=== PATIENT | male | born 1965 | race Caucasian/White ===

== ENCOUNTER 2020-03-18 13:26 | Outpatient (REF) | payer OTHER, SELFPAY | END 2020-03-18 13:27 | disposition home or self-care (01) | LOC: HO.LAB 13:26 | PROVIDERS: Visit Provider Nurse Practitioner Family | DX: Z20.828 Contact with and (suspected) exposure to other viral communicable diseases (principal) | CPT/HCPCS: C9803; U0003 ==

== ENCOUNTER 2020-06-19 07:35 | Outpatient (REF) | payer OTHER, SELFPAY ==
[2020-06-19 09:05] LABS: Alanine Aminotransferase 23 U/L (0-40); Albumin Level 4.3 g/dL (3.5-5.0); Alkaline Phosphatase 66 U/L (39-117); Anion Gap 11 (12-20); Aspartate Amino Transferase 18 U/L (5-37); Bilirubin Total 0.9 mg/dL (0.0-1.0); Blood Urea Nitrogen 22 mg/dL (9-16); Calcium 9.3 mg/dL (8.4-10.2); Carbon Dioxide 31 mmol/L (22-29); Chloride 102 mmol/L (96-108); Cholesterol 217 mg/dL; Estimated Glomerular Filt Rate > 60; Glucose Fasting 98 mg/dL (60-99); HDL Cholesterol 47 mg/dL; LDL Cholesterol Calculated 150 mg/dl; Sodium 140 mmol/L (135-145); Total Protein 7.1 g/dL (6.5-8.0); Triglycerides 100 mg/dL
[2020-06-19 09:28] LABS: Prostate Specific Antigen Scr 1.76 ng/mL (<0.05-4.0); TSH reflex Free T4 1.52 uIU/mL (0.32-4.0)
== END 2020-06-19 07:36 | disposition home or self-care (01) ==
LOC: HO.LAB 07:35
PROVIDERS: PCP Nurse Practitioner Family; Visit Provider Nurse Practitioner Family
DX: Z00.00 Encounter for general adult medical examination without abnormal findings (principal); Z12.5 Encounter for screening for malignant neoplasm of prostate
CPT/HCPCS: 36415; 80053; 80061; 84153; 84443

== ENCOUNTER 2020-06-19 08:14 | Outpatient (REF) | payer OTHER, SELFPAY | END 2020-06-19 08:15 | disposition home or self-care (01) | LOC: HO.LAB 08:14 | PROVIDERS: Visit Provider Internal Medicine | DX: Z20.822 Contact with and (suspected) exposure to COVID-19 (principal) | CPT/HCPCS: 36415; C9803; U0003; U0005 ==

== ENCOUNTER 2021-05-23 10:09 | Outpatient (REF) | payer OTHER, SELFPAY ==
--- NOTE | ~2021-05-23 | US_ITS ---
EXAMINATION: US VENOUS ULTRASOUND WITH DOPPLER LOWER EXTREMITY, RIGHT CLINICAL INFORMATION: Pain COMPARISON: None TECHNIQUE: Ultrasound of the deep veins is performed from the hip to the calf with compression sonography and color and pulse Doppler assessment. Spectral analysis with color-flow imaging is performed. FINDINGS: Acute thrombosis of the right lower extremity deep venous system extending from the calf to the groin. Clot appears acute with distention and appears occlusive. US/US venous duplex LE RT IMPRESSION: Acute right lower extremity extensive DVT as above. Dr. Angeles notified by technologist immediately following exam.
[2021-05-23 11:17] LABS: MANUAL DIFF FLAG NO
[2021-05-23 11:21] LABS: Basophils Percent Auto 0.2 % (0-2); Eosinophils Percent Auto 0.1 % (0-4); Hematocrit 42.7 % (42.0-52.0); Hemoglobin 13.8 g/dl (14.0-18.0); Imm Gran Abs Auto 0.17 X10*3/uL (0.00-0.03); Lymphocytes Absolute Auto 1.3 X10*3/uL (1.2-4.9); Lymphocytes Percent Auto 7.6 % (20-40); Mean Corpuscular HGB Conc 32.3 g/dl (31.0-36.0); Mean Corpuscular Hemoglobin 29.2 pg (27.0-33.0); Mean Corpuscular Volume 90.5 fL (80.0-98.0); Mean Platelet Volume 9.2 fL (9.4-12.4); Monocytes Absolute Auto 1.2 X10*3/uL (0.1-1.2); Monocytes Percent Auto 7.1 % (2-11); Neutrophils Absolute Auto 14.7 x10*3/uL (2.0-8.3); Platelet Count 611 X10*3/uL (160-400); Red Blood Count 4.72 X10*6/uL (4.60-5.80); Red Cell Distribution Width 13.3 % (11.0-16.0); White Blood Count 17.5 X10*3/uL (4.8-10.8)
[2021-05-23 11:28] LABS: D Dimer High Sensitivity 2487 NG/ML
[2021-05-23 12:00] LABS: Alanine Aminotransferase 115 U/L (0-40); Albumin Level 3.3 g/dL (3.5-5.0); Alkaline Phosphatase 259 U/L (39-117); Anion Gap 18 (12-20); Aspartate Amino Transferase 61 U/L (5-37); Bilirubin Total 1.2 mg/dL (0.0-1.0); Blood Urea Nitrogen 16 mg/dL (9-16); Calcium 9.1 mg/dL (8.4-10.2); Carbon Dioxide 23 mmol/L (22-29); Chloride 102 mmol/L (96-108); Estimated Glomerular Filt Rate > 60; Glucose Random 146 mg/dL (60-115); Sodium 138 mmol/L (135-145); Total Protein 7.9 g/dL (6.5-8.0)
== END 2021-05-23 10:10 | disposition home or self-care (01) ==
LOC: HO.HMGCX 10:09
PROVIDERS: PCP Nurse Practitioner Family; Visit Provider Nurse Practitioner Family
DX: M79.661 Pain in right lower leg (principal); R07.89 Other chest pain
CPT/HCPCS: 36415; 80053; 85025; 85379; 93971

== ENCOUNTER 2021-05-23 10:58 | Inpatient (IN) | payer OTHER, SELFPAY ==
--- NOTE | ~2021-05-23 | XR_ITS ---
EXAMINATION: XR CHEST CLINICAL INFORMATION: Dyspnea COMPARISON: None TECHNIQUE: Frontal view of the chest was obtained. FINDINGS: The cardiac and mediastinal contours are normal. There are bilateral peripheral infiltrates, greatest in the left upper lung. Covid infection should be excluded. There is no pleural effusion or pneumothorax. There are mild degenerative changes of the spine. XR/XR chest 1V IMPRESSION: Bilateral peripheral infiltrates. Covid infection should be excluded.
--- NOTE | ~2021-05-23 | CT_ITS ---
EXAMINATION: CT ANGIOGRAM OF THE CHEST WITH AND WITHOUT CONTRAST (CT PULMONARY ANGIOGRAM FOR PE) CLINICAL INFORMATION: Reason for Exam dvt and sob rule out pe COMPARISON: None TECHNIQUE: Prior to contrast administration, noncontrast localization images were obtained. Subsequently, multidetector volumetric imaging was performed from the thoracic inlet to below the diaphragms following the administration of 80 mL Omnipaque 350 intravenous contrast. No contrast reaction reported Sagittal, coronal, and MIP oblique sagittal reformatted images were obtained on the CT workstation, uploaded to PACS, and reviewed. This CT examination was performed using dose optimization techniques as appropriate, variously including the following: *Automated exposure control *Adjustment of mA and/or kV according to patient size (this includes techniques or standardized protocols for targeted exams where dose is matched to indication/reason for exam; i.e. extremities or head) *Use of iterative reconstruction technique Total exam dose-length product 404 mGy-cm FINDINGS: QUALITY OF STUDY/CONTRAST BOLUS: Satisfactory. PULMONARY ARTERIES: There are large obstructive emboli in the right and left pulmonary artery bifurcations and moderate sized emboli in the right and left pulmonary arteries. The emboli extend into left and right inferior pulmonary artery branches and left upper pulmonary artery branch. THORACIC AORTA: No aneurysm or dissection. LUNG: There are multiple bilateral patchy opacities consistent with infiltrates involving both upper lobes, lower and mid lungs. PLEURA: No pleural effusion or pneumothorax. MEDIASTINUM: Heart size and the great vessels are normal caliber. No pericardial effusion seen. There are small reactive lymph nodes. Bilateral thyroid lobes are symmetrical and normal. No evidence of septal bowing or right heart strain. CHEST WALL/AXILLA: No axillary or internal mammary lymphadenopathy. OSSEOUS STRUCTURES: Moderate ventral spondylosis dorsal spine. No lytic or sclerotic process seen. UPPER ABDOMEN: There is a moderate size right hepatic cyst measuring 2.9 cm. Otherwise rest of liver, gallbladder, pancreas, spleen and adrenal glands are unremarkable. No reflux of contrast into the hepatic veins to suggest elevated right heart pressures. CT/CT angio chest PE protocol IMPRESSION: Large bilateral obstructive right and left pulmonary artery emboli. Bilateral patchy airspace disease consistent with infiltrate likely from Covid disease. Results were immediately called to referring physician Dr. Chang at 3:10 PM in ED. VTE: negative
[2021-05-23 11:56] VITALS: BP 138/88; PULSE 145; RESP 24; TEMP 37.1; O2SAT 93; BMI 33.9
--- NOTE | 2021-05-23 12:20 | ECG_ITS ---
Test Reason : seizure Blood Pressure : / mmHG Vent. Rate : 130 BPM Atrial Rate : 130 BPM P-R Int : 144 ms QRS Dur : 110 ms QT Int : 302 ms P-R-T Axes : 049 -60 018 degrees QTc Int : 444 ms Sinus tachycardia Incomplete right bundle branch block Left anterior fascicular block Nonspecific ST and T wave abnormality Abnormal ECG When compared with ECG of 28-JUN-2016 13:46, Vent. rate has increased BY 57 BPM Left anterior fascicular block is now Present ST no longer depressed in Inferior leads T wave inversion now evident in Inferior leads Referred By: [place] Electronically Signed By:Grant Jimenez
--- NOTE | 2021-05-23 12:47 | ED.EXTPRO ---
HPI - Extremity Problem General Chief complaint: Extremity Problem Stated complaint: DVT Time Seen by Provider: 05/23/21 12:17 Source: patient Mode of arrival: ambulatory Limitations: no limitations History of Present Illness HPI Narrative: 55-year-old male was evaluated by his PCP for right lower extremity pain, patient had an ultrasound done by his PCP showed extensive and occlusive DVT in the right lower extremity, patient declined any recent travel, no prolonged immobilization, never had blood clots in the past. Patient also found to be tachycardic and tachypneic and his O2 sat in the low side But declined chest pain. Patient also is known to be positive COVID on 05/03 Saddle PE need to be ruled out, patient is known to have mild allergy to IV contrast (rash), patient will be receiving 125 of Solu-Medrol and 50 of Benadryl IV before we get the CT angio of the chest. As per history patient had ruptured cerebral aneurysm many years ago. Will cautiously anticoagulated the patient with heparin. Related Data Home Medications Medication Instructions Recorded Confirmed thiamine mononitrate (vit B1) 100 100 mg PO DAILY 06/15/20 05/23/21 mg tablet Previous Rx's Medication Instructions Recorded atenolol 25 mg tablet 25 mg PO DAILY #30 tab 09/17/20 amlodipine 5 mg tablet 5 mg PO DAILY #90 tab 04/15/21 hydrochlorothiazide 25 mg tablet 25 mg PO DAILY #90 tab 04/15/21 Allergies Allergy/AdvReac Type Severity Reaction Status Date / Time Iodinated Contrast Media Allergy Unknown HIVES Verified 05/23/21 10:48 [IV CONTRAST] IVP dye Allergy Unknown hives Uncoded 05/23/21 10:48 Review of Systems Review of Systems: all other systems are reviewed and are negative Constitutional: Reports as per HPI and Reports no additional constitutional complaints Eyes: Reports as per HPI and Reports no additional eye complaints Reports system reviewed and no additional complaints, except as documented Cardiovascular: Reports as per HPI and Reports no additional cardiovascular complaints Respiratory: Reports as per HPI and Reports no additional respiratory complaints Gastrointestinal: Reports as per HPI and Reports no additional gastrointestinal complaints Genitourinary: Reports no additional female genitourinary complaints Musculoskeletal: Reports no additional musculoskeletal complaints Skin/Breast: Reports system reviewed and no additional complaints, except as docu Psychiatric: Reports no additional psychiatric complaints Endocrine: Reports no additional endocrine complaints Hematologic/Lymphatic: Reports no additional hematologic/lymphatic complaints Allergic/Immunologic: Reports no additional allergic/immunologic complaints Reports system reviewed and no additional complaints, except as documented and Reports Abnormal speech present [facility] Past Medical History Medical History Anemia Aortic root dilatation BPH (benign prostatic hyperplasia) Cerebral aneurysm Cogwheel rigidity CVA (cerebral vascular accident) HTN (hypertension) Tremor Surgical History History of brain surgery Family History Family History Father Cancer of prostate Mother No problems noted. Daughter No problems noted. 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 Blood pressure normal. Heart rate elevated. Respiration rate elevated. Temperature normal. Oxygen saturation normal. Appearance: Alert. Oriented X3, mild respiratory acute distress. Head: Normal external exam. Normocephalic. Atraumatic. No Strickland signs noted. No raccoon eyes noted Eyes: PERRLA. EOMI. Conjunctiva and sclera normal. Eyelids normal. ENT: TM's Normal. Pharynx normal. Uvula midline. Moist mucous membranes. No trismus noted. No drooling noted. No muffled voice noted. Neck: Normal inspection. Neck supple. FROM. No adenopathy. Thyroid Normal. No meningeal signs. No neck mass noted. CVS: Normal heart rate and rhythm. Heart sound normal. No murmurs noted. Pulses normal throughout. Respiratory: No respiratory distress. Painless inspiration. Breath sounds normal. No wheezes/rales/rhonchi noted. Chest nontender. No accessory muscle usage noted or decreased air movement noted. Abdomen: Soft and nontender. Bowel sounds normal in all 4 quadrants. No distention noted. No organomegaly noted. No visible injury noted. Back: No CVA tenderness. Full range of motion noted. Skin: Skin warm and dry. Normal skin color. Normal skin turgor. No rashes/lesions/lacerations noted. Extremities: No lower extremity edema. Extremities exhibit normal range of motion. Extremities nontender. Neuro: Oriented X 3. Cranial nerve exam: II-XII are grossly intact No motor deficit. No sensory deficit. Reflexes normal. Course Course Course Narrative: Assessment and plan. 55-year-old male came in with diagnosis of right lower extremities DVT, because patient noted to be tachycardic and tachypneic had a CT which showed to massive occlusive pulmonary artery embolism, start the patient on heparin, patient had a history of remote cerebral aneurysm cautiously will start the patient on heparin. I discussed with Dr. Hernandez (neurologist ) who confirmed safety of using heparin in this condition. Patient may require been [place] filter placed an IVC to be discussed with IR. MDM - Extremity (Nontraumatic) Lab Data Result diagrams: 05/24/21 03:40 05/24/21 03:41 Labs: Lab Results 05/23/21 05/23/21 05/23/21 Range/Units 15:37 15:37 15:37 WBC Cancelled RBC Cancelled Hgb Cancelled Hct Cancelled MCV Cancelled MCH Cancelled MCHC Cancelled RDW Cancelled Plt Count Cancelled MPV Cancelled Immature Gran % (Auto) Cancelled Neut % (Auto) Cancelled Lymph % (Auto) Cancelled [place] % (Auto) Cancelled Eos % (Auto) Cancelled Baso % (Auto) Cancelled Lymph # (Auto) Cancelled [place] # (Auto) Cancelled Eos # (Auto) Cancelled Baso # (Auto) Cancelled Abs Immat Gran (auto) Cancelled Absolute Neuts (auto) Cancelled Absolute Nucleated RBC Cancelled Nucleated RBC % (auto) Cancelled PT (9.9-13.0) SEC INR (0.9-1.1) APTT (24.1-38.0) SEC PTT (Heparin Protocol) Sodium 136 (135-145) mmol/L Potassium 4.9 (3.3-5.1) mmol/L Chloride 101 (96-108) mmol/L Carbon Dioxide 24 (22-29) mmol/L Anion Gap 16 (12-20) BUN 16 (9-16) mg/dL Creatinine 0.88 (0.5-1.4) mg/dL Estim Creat Clear Calc 123.3 Estimated GFR > 60 Random Glucose 134 H (60-115) mg/dL Calcium 9.1 (8.4-10.2) mg/dL Magnesium 2.2 (1.6-2.6) mg/dL Total Bilirubin 1.4 H (0.0-1.0) mg/dL Direct Bilirubin 0.8 H (0.0-0.5) mg/dL AST 50 H (5-37) U/L ALT 110 H (0-40) U/L Alkaline Phosphatase 251 H (39-117) U/L Troponin I High Sens (<3.5-35.0) ng/L B-Natriuretic Peptide (<100) pg/mL Total Protein 8.0 (6.5-8.0) g/dL Albumin 3.4 L (3.5-5.0) g/dL COVID-19 (KELLY) Negative (Negative) COVID-19 Clin Com See Note 05/23/21 05/23/21 05/23/21 Range/Units 15:37 15:37 15:38 WBC 17.1 H RBC 4.59 L Hgb 13.4 L Hct 41.2 L MCV 89.8 MCH 29.2 MCHC 32.5 RDW 13.4 Plt Count 497 H MPV 8.9 L Immature Gran % (Auto) Neut % (Auto) Lymph % (Auto) [place] % (Auto) Eos % (Auto) Baso % (Auto) Lymph # (Auto) [place] # (Auto) Eos # (Auto) Baso # (Auto) Abs Immat Gran (auto) Absolute Neuts (auto) Absolute Nucleated RBC 0.000 Nucleated RBC % (auto) 0.0 PT 16.1 H (9.9-13.0) SEC INR 1.4 H (0.9-1.1) APTT 38.5 H (24.1-38.0) SEC PTT (Heparin Protocol) Sodium (135-145) mmol/L Potassium (3.3-5.1) mmol/L Chloride (96-108) mmol/L Carbon Dioxide (22-29) mmol/L Anion Gap (12-20) BUN (9-16) mg/dL Creatinine (0.5-1.4) mg/dL Estim Creat Clear Calc Estimated GFR Random Glucose (60-115) mg/dL Calcium (8.4-10.2) mg/dL Magnesium (1.6-2.6) mg/dL Total Bilirubin (0.0-1.0) mg/dL Direct Bilirubin (0.0-0.5) mg/dL AST (5-37) U/L ALT (0-40) U/L Alkaline Phosphatase (39-117) U/L Troponin I High Sens 32.8 (<3.5-35.0) ng/L B-Natriuretic Peptide 78 (<100) pg/mL Total Protein (6.5-8.0) g/dL Albumin (3.5-5.0) g/dL COVID-19 (KELLY) (Negative) COVID-19 Clin Com 05/23/21 Range/Units 15:38 WBC RBC Hgb Hct MCV MCH MCHC RDW Plt Count MPV Immature Gran % (Auto) Neut % (Auto) Lymph % (Auto) [place] % (Auto) Eos % (Auto) Baso % (Auto) Lymph # (Auto) [place] # (Auto) Eos # (Auto) Baso # (Auto) Abs Immat Gran (auto) Absolute Neuts (auto) Absolute Nucleated RBC Nucleated RBC % (auto) PT Cancelled (9.9-13.0) SEC INR Cancelled (0.9-1.1) APTT (24.1-38.0) SEC PTT (Heparin Protocol) Cancelled Sodium (135-145) mmol/L Potassium (3.3-5.1) mmol/L Chloride (96-108) mmol/L Carbon Dioxide (22-29) mmol/L Anion Gap (12-20) BUN (9-16) mg/dL Creatinine (0.5-1.4) mg/dL Estim Creat Clear Calc Estimated GFR Random Glucose (60-115) mg/dL Calcium (8.4-10.2) mg/dL Magnesium (1.6-2.6) mg/dL Total Bilirubin (0.0-1.0) mg/dL Direct Bilirubin (0.0-0.5) mg/dL AST (5-37) U/L ALT (0-40) U/L Alkaline Phosphatase (39-117) U/L Troponin I High Sens (<3.5-35.0) ng/L B-Natriuretic Peptide (<100) pg/mL Total Protein (6.5-8.0) g/dL Albumin (3.5-5.0) g/dL COVID-19 (KELLY) (Negative) COVID-19 Clin Com Imaging Data Chest x-ray: Attestation: I personally reviewed and interpreted this imaging study as follows: Radiologist's impression: Bilateral peripheral infiltrates. Covid infection should be excluded. ? Right lower extremities venous Doppler: Attestation: I personally reviewed and interpreted this imaging study as follows: Radiologist's impression: Acute right lower extremity extensive DVT as above. Dr. Angeles notified by technologist immediately following exam. CT angiogram of the chest: Attestation: I personally reviewed and interpreted this imaging study as follows: Radiologist's impression: Large bilateral obstructive right and left pulmonary artery emboli. ? Bilateral patchy airspace disease consistent with infiltrate likely from Covid disease. ? ECG Data Attestation EKG: I personally reviewed and interpreted this ECG as follows: Interpretation: sinus tachycardia 130 beats per minutes, incompletely bundle branch block, nonspecific ST-T changes. Discharge Plan Discharge Clinical Impression: Acute deep vein thrombosis (DVT) of right lower extremity Pulmonary embolism Qualifiers: Chronicity: acute Acute cor pulmonale presence: without acute cor pulmonale Patient Disposition: Admitted As Inpatient
[2021-05-23] MEDS: diphenhydrAMINE HCL 50 MG/ML VIAL IVPUSH (13:32)
[2021-05-23] MEDS: methylPREDNISolone Sod Succ 125 MG/2 ML VIAL IVPUSH (13:32)
[2021-05-23] MEDS: Morphine Sulfate 2 MG/ML CARTRIDGE IVPUSH (13:32)
[2021-05-23 13:33] VITALS: BP 116/72; PULSE 137; RESP 23; O2SAT 90
--- NOTE | 2021-05-23 14:28 | PHA.MEDREC ---
Pharmacy Consult ? Medication Reconciliation Pharmacy has completed the medication reconciliation. There are no remarkable issues for provider's attention. Alexandria Kumar, AlphonseD
[2021-05-23] MEDS: iohexoL 350 MG/ML 100 ML INFUS..BTL IV (15:02)
[2021-05-23] MEDS: Heparin Sodium,Porcine 5,000 UNIT/ML VIAL 9100 UNIT IVPUSH (15:30)
[2021-05-23] MEDS: Heparin Sodium,Porcine/1/2NS 25,000 UNIT/250 ML IV.SOLN 15.88 UNIT IVCONT (15:41)
[2021-05-23 15:46] VITALS: BP 131/87; PULSE 133; RESP 32; TEMP 36.6; O2SAT 91
[2021-05-23 15:46] LABS: Hematocrit 41.2 % (42.0-52.0); Hemoglobin 13.4 g/dl (14.0-18.0); Mean Corpuscular HGB Conc 32.5 g/dl (31.0-36.0); Mean Corpuscular Hemoglobin 29.2 pg (27.0-33.0); Mean Corpuscular Volume 89.8 fL (80.0-98.0); Mean Platelet Volume 8.9 fL (9.4-12.4); Platelet Count 497 X10*3/uL (160-400); Red Blood Count 4.59 X10*6/uL (4.60-5.80); Red Cell Distribution Width 13.4 % (11.0-16.0); White Blood Count 17.1 X10*3/uL (4.8-10.8)
[2021-05-23 15:53] LABS: INTERNATIONAL NORM RATIO 1.4 (0.9-1.1); Prothrombin Time 16.1 SEC (9.9-13.0)
[2021-05-23 15:55] LABS: Partial Thromboplastin Time 38.5 SEC (24.1-38.0)
[2021-05-23 15:59] LABS: Alanine Aminotransferase 110 U/L (0-40); Albumin Level 3.4 g/dL (3.5-5.0); Alkaline Phosphatase 251 U/L (39-117); Anion Gap 16 (12-20); Aspartate Amino Transferase 50 U/L (5-37); Bilirubin Direct 0.8 mg/dL (0.0-0.5); Bilirubin Total 1.4 mg/dL (0.0-1.0); Blood Urea Nitrogen 16 mg/dL (9-16); Calcium 9.1 mg/dL (8.4-10.2); Carbon Dioxide 24 mmol/L (22-29); Chloride 101 mmol/L (96-108); Creatinine Clr Calc Pharmacy 123.3; Estimated Glomerular Filt Rate > 60; Glucose Random 134 mg/dL (60-115); Magnesium 2.2 mg/dL (1.6-2.6); Potassium 4.9 mmol/L (3.3-5.1); Sodium 136 mmol/L (135-145)
[2021-05-23 16:02] LABS: COVID-19 Test Negative (Negative); IDNOW Serial# 9DD0AD1C
[2021-05-23 16:05] LABS: B Type Natriuretic Peptide 78 pg/mL (<100); Troponin-I High Sensitivity 32.8 ng/L (<3.5-35.0)
--- NOTE | 2021-05-23 17:08 | P.HPHOSP_ITS ---
History of Present Illness Date of Service: 05/23/21 Chief Complaint: DVT/PE 55-year-old male was evaluated by his PCP for right lower extremity pain, patient had an ultrasound done by his PCP showed extensive? and occlusive DVT in the right lower extremity, patient declined any recent travel, no prolonged immobilization, never had blood clots in the past.? Patient also found to be tachycardic and tachypneic and his O2 sat in the low side? Covid positive 05/03/21(unvaccinated). ER: CTA chest demonstrate saddle emboli; Lung changes suspicious for Covid pneumonia. Heparin drip started..admission requested. Review of Systems Review of Systems: denies chest pain Admits to exertional shortness of breath Denies nausea vomiting diarrhea PMFSH Medical History Anemia Aortic root dilatation BPH (benign prostatic hyperplasia) Cerebral aneurysm Cogwheel rigidity CVA (cerebral vascular accident) HTN (hypertension) Tremor Family History Father Cancer of prostate Mother No problems noted. Daughter No problems noted. Surgical History History of brain surgery Social History Alcohol intake: current Patient Tobacco Use Status: Former Tobacco user Years Smoked: quit 20 years ago e-Cigarette/Vaping Use: Never Used Second Hand Smoke Exposure: Yes Advance Directives: Yes Advance Directives Information Provided: No Advance Directives on File: No service: No Current occupational status: employed Current occupation: [employer] Current occupational exposures/hazards: No Meds Allergies Allergy/AdvReac Type Severity Reaction Status Date / Time Iodinated Contrast Media Allergy Unknown HIVES Verified 05/23/21 10:48 [IV CONTRAST] IVP dye Allergy Unknown hives Uncoded 05/23/21 10:48 Active Medications: Current Medications Amlodipine Besylate (Amlodipine Besylate 5 Mg Tablet) 5 mg PO DAILY RAJESH; Protocol Atenolol (Atenolol 25 Mg Tablet) 25 mg PO DAILY RAJESH; Protocol Dexamethasone Sodium Phosphate (Dexamethasone Sod Phosphate 4 Mg/Ml Vial) 6 mg IVPUSH DAILY ONE Stop: 01/17/22 17:04 Famotidine (Famotidine 20 Mg Tablet) 20 mg PO BID@1000,2200 [facility] Heparin Sodium (Porcine) (Heparin Sodium,Porcine 5,000 Unit/Ml Vial) 4,500 unit 40 unit/kg (4500 unit) IVPUSH PROTOCOL BOLUS PRN; Protocol PRN Reason: 40 unit/kg - Heparin Protocol Heparin Sodium (Porcine) (Heparin Sodium,Porcine 5,000 Unit/Ml Vial) 9,100 unit 80 unit/kg (9100 unit) IVPUSH PROTOCOL BOLUS PRN; Protocol PRN Reason: 80 unit/kg - Heparin Protocol Hydrochlorothiazide (Hydrochlorothiazide 25 Mg Tablet) 25 mg PO DAILY [facility]; Protocol Heparin Sodium/Sodium Chloride () 25,000 unit in 250 mls @ 0 mls/hr IVCONT .Q0M [facility]; Protocol Last Admin: 05/23/21 15:41 Dose: 14 units/kg/hr, 15.88 mls/hr Documented by: Doxycycline Hyclate 100 mg/ (Sodium Chloride) 250 mls @ 166.67 mls/hr IV BID@1000,2200 [facility] Morphine Sulfate (Morphine Sulfate 4 Mg/Ml Cartridge) 4 mg IVPUSH RQ4H PRN; Protocol PRN Reason: Pain, Moderate (Pain Scale 4-6 Pharmacy Consult (Consult Rx Perform Med Rec) 1 each MISCELLANE ONCE PRN PRN Reason: Consult order Sodium Chloride (0.9 % Sodium Chloride Flush 3 Ml Syringe) 3 ml IVFLUSH QSHIFT [facility] Home Medications Medication Instructions Recorded Confirmed Last Taken Type thiamine mononitrate (vit B1) 100 100 mg PO DAILY 06/15/20 05/23/21 05/22/21 History mg tablet Physical Exam Vital Signs and Narrative: Vital Signs: Last Vital Signs Temp 97.9 F 05/23/21 15:46 Pulse 133 H 05/23/21 15:46 Resp 32 H 05/23/21 15:46 BP 131/87 05/23/21 15:46 Pulse Ox 91 L 05/23/21 15:46 BMI result Body Mass Index 33.9 Const: Other: no acute distress lying on the stretcher Resp: Other: scant crackles bilateral bases Cardio: Other: no S4; positive S1-S2; no S3 murmurs rubs or gallops GI: Other: soft nontender nondistended normoactive bowel sounds. No rebound or guarding Neuro: Other: cranial nerves 2-12 grossly intact as tested. Motor is 5/5 all extremities. Sensation intact cognition appropriate Extrem: Other: no edema bilaterally Results Labs CBC and Chem 7: 05/23/21 15:38 05/23/21 15:37 Labs: Laboratory Results - last 24 hr 05/23/21 05/23/21 05/23/21 15:37 15:37 15:37 MCV Cancelled MCH Cancelled MCHC Cancelled RDW Cancelled Plt Count Cancelled MPV Cancelled Immature Gran % (Auto) Cancelled Neut % (Auto) Cancelled Lymph % (Auto) Cancelled [place] % (Auto) Cancelled Eos % (Auto) Cancelled Baso % (Auto) Cancelled Lymph # (Auto) Cancelled [place] # (Auto) Cancelled Eos # (Auto) Cancelled Baso # (Auto) Cancelled Abs Immat Gran (auto) Cancelled Absolute Neuts (auto) Cancelled Absolute Nucleated RBC Cancelled Nucleated RBC % (auto) Cancelled PT INR APTT PTT (Heparin Protocol) Anion Gap 16 Estim Creat Clear Calc 123.3 Estimated GFR > 60 Random Glucose 134 H Calcium 9.1 Magnesium 2.2 Total Bilirubin 1.4 H Direct Bilirubin 0.8 H AST 50 H ALT 110 H Alkaline Phosphatase 251 H Troponin I High Sens B-Natriuretic Peptide Total Protein 8.0 Albumin 3.4 L COVID-19 (KELLY) Negative COVID-19 Clin Com See Note 05/23/21 05/23/21 05/23/21 15:37 15:37 15:38 MCV 89.8 MCH 29.2 MCHC 32.5 RDW 13.4 Plt Count 497 H MPV 8.9 L Immature Gran % (Auto) Neut % (Auto) Lymph % (Auto) [place] % (Auto) Eos % (Auto) Baso % (Auto) Lymph # (Auto) [place] # (Auto) Eos # (Auto) Baso # (Auto) Abs Immat Gran (auto) Absolute Neuts (auto) Absolute Nucleated RBC 0.000 Nucleated RBC % (auto) 0.0 PT 16.1 H INR 1.4 H APTT 38.5 H PTT (Heparin Protocol) Anion Gap Estim Creat Clear Calc Estimated GFR Random Glucose Calcium Magnesium Total Bilirubin Direct Bilirubin AST ALT Alkaline Phosphatase Troponin I High Sens 32.8 B-Natriuretic Peptide 78 Total Protein Albumin COVID-19 (KELLY) COVID-19 Clin Com 05/23/21 15:38 MCV MCH MCHC RDW Plt Count MPV Immature Gran % (Auto) Neut % (Auto) Lymph % (Auto) [place] % (Auto) Eos % (Auto) Baso % (Auto) Lymph # (Auto) [place] # (Auto) Eos # (Auto) Baso # (Auto) Abs Immat Gran (auto) Absolute Neuts (auto) Absolute Nucleated RBC Nucleated RBC % (auto) PT Cancelled INR Cancelled APTT PTT (Heparin Protocol) Cancelled Anion Gap Estim Creat Clear Calc Estimated GFR Random Glucose Calcium Magnesium Total Bilirubin Direct Bilirubin AST ALT Alkaline Phosphatase Troponin I High Sens B-Natriuretic Peptide Total Protein Albumin COVID-19 (KELLY) COVID-19 Clin Com Imaging Radiologist's Impressions: Impressions Chest X-Ray 05/23/21 12:47 IMPRESSION: Bilateral peripheral infiltrates. Covid infection should be excluded. Chest CTA 05/23/21 15:03 IMPRESSION: Large bilateral obstructive right and left pulmonary artery emboli. Bilateral patchy airspace disease consistent with infiltrate likely from Covid disease. Results were immediately called to referring physician Dr. Chang at 3:10 PM in ED. VTE: negative Assessment and Plan (1) Acute deep vein thrombosis (DVT) of right lower extremity: Status: Acute (2) Pulmonary embolism: Qualifiers: Acute cor pulmonale presence: without acute cor pulmonale Chronicity: acute Status: Acute 54-year-old male presents to PCP this a.m. for right lower extremity pain. Ultrasound done at PCPs office showed extensive occlusive DVT in the right lower extremity. Patient denies risk factors. Was sent to ER for further evaluation and treatment. In the ER. CTA of the chest with contrast demonstrated large bilateral obstructive right and left pulmonary artery emboli along with bilateral patchy airspace disease consistent with infiltrate likely from COVID. 1. Pulmonary Emboli( no evidence of right heart strain on CT) -Heparin drip as pr protocol -2d echo in am to evaaluate for right heart strain(if present consider IVC f ilter) - morphine prn for pain 2.HTN -Continue amlodipine/atenolol/HCTZ -adjust as indicated 3. DMII (by Hx) - follow sliding scale while hospitalized Heparin/Full code Quality Stroke Does the patient have a stroke diagnosis?: No VTE Prior VTE?: No VTE Risk Level:: Medical - moderate - high VTE Device Contraindication: Treatment Not Indicated VTE Drug Contraindication: N/A - Med Ordered
[2021-05-23] MEDS: dexAMETHasone sod phosphate 4 MG/ML VIAL 6 MG IVPUSH (18:04)
[2021-05-23] MEDS: atenoloL 25 MG TABLET PO (18:04)
[2021-05-23] MEDS: Morphine Sulfate 4 MG/ML CARTRIDGE IVPUSH (18:04)
[2021-05-23 18:28] VITALS: BP 122/83; PULSE 120; RESP 27; TEMP 36.7; O2SAT 93
[2021-05-23 20:52] VITALS: BP 104/72; PULSE 91; RESP 20; TEMP 36.4; O2SAT 94
[2021-05-23 21:32] LABS: Glucose, Whole Blood 207 mg/dL (60-115)
[2021-05-23] MEDS: Doxycycline Hyclate 100 MG in 0.9 % Sodium Chloride 250 ML 166.67 MG IV (21:39)
[2021-05-23] MEDS: Insulin Lispro 100 UNIT/ML 3 ML VIAL SUBCUT (21:40)
[2021-05-23] MEDS: Famotidine 20 MG TABLET PO (21:41)
[2021-05-23 21:43] LABS: PTT Heparin Drip 63.5 SEC (53-77.9)
[2021-05-24] VITALS (8 sets, daily range): BP systolic 101–128; BP diastolic 65–89; PULSE 78–97; RESP 12–22; TEMP 36.5–36.9; O2SAT 94–96
[2021-05-24] MEDS: Morphine Sulfate 4 MG/ML CARTRIDGE IVPUSH ×3 (01:21→21:59)
[2021-05-24 03:46] LABS: Hematocrit 36.3 % (42.0-52.0); Hemoglobin 11.8 g/dl (14.0-18.0); Mean Corpuscular HGB Conc 32.5 g/dl (31.0-36.0); Mean Corpuscular Hemoglobin 29.6 pg (27.0-33.0); Mean Platelet Volume 8.8 fL (9.4-12.4); Platelet Count 425 X10*3/uL (160-400); Red Blood Count 3.99 X10*6/uL (4.60-5.80); Red Cell Distribution Width 13.3 % (11.0-16.0); White Blood Count 14.7 X10*3/uL (4.8-10.8)
[2021-05-24 04:11] LABS: Alanine Aminotransferase 82 U/L (0-40); Albumin Level 2.9 g/dL (3.5-5.0); Alkaline Phosphatase 207 U/L (39-117); Anion Gap 13 (12-20); Aspartate Amino Transferase 31 U/L (5-37); Bilirubin Total 0.7 mg/dL (0.0-1.0); Blood Urea Nitrogen 18 mg/dL (9-16); Calcium 8.7 mg/dL (8.4-10.2); Carbon Dioxide 25 mmol/L (22-29); Chloride 104 mmol/L (96-108); Creatinine Clr Calc Pharmacy 142.7; Estimated Glomerular Filt Rate > 60; Glucose Fasting 158 mg/dL (60-99); Potassium 5.1 mmol/L (3.3-5.1); Sodium 137 mmol/L (135-145); Total Protein 6.7 g/dL (6.5-8.0)
[2021-05-24 04:14] LABS: INTERNATIONAL NORM RATIO 1.4 (0.9-1.1); Prothrombin Time 15.6 SEC (9.9-13.0)
[2021-05-24 04:16] LABS: PTT Heparin Drip 57.8 SEC (53-77.9)
[2021-05-24] MEDS: Heparin Sodium,Porcine/1/2NS 25,000 UNIT/250 ML IV.SOLN 15.88 UNIT IVCONT (08:04)
[2021-05-24 08:22] LABS: Glucose, Whole Blood 150 mg/dL (60-115)
[2021-05-24] MEDS: amLODIPine Besylate 5 MG TABLET PO (08:24)
[2021-05-24] MEDS: hydroCHLOROthiazide 25 MG TABLET PO (08:25)
[2021-05-24] MEDS: atenoloL 25 MG TABLET PO (08:25)
--- NOTE | 2021-05-24 08:31 | PC.NURSE ---
Pt received from funnel coater: Pt AoX4 and denies any current complaints. Pt does still have intermittent wet cough and remains on 2LN/C. NSR to sinus tachy noted on monitor. Lungs diminished. B/L pedal pulses palpable and strong. Hepari continues to run. Pt abd soft and non-tender.
[2021-05-24 09:39] LABS: PTT Heparin Drip 44.6 SEC (53-77.9)
--- NOTE | 2021-05-24 10:30 | CA_ITS ---
Transthoracic Echocardiogram Patient (Last, First, Middle): Raoul Jurado J Gender: Male Date of : 1965 Age: 55 Procedure Date: 05/24/2021 Procedure Type: Transthoracic Echocardiogram Location: ER Height: 182.88 cm Weight: 113.4 kg BSA: 2.34 m2 Heart Rate: bpm BP: 109 / 65 mmHg [employer] Supervisor: Referring MD: Carlo Ohara MD Symptoms: PE Study Quality: Fair ECG Rhythm: Sinus Conclusions: - Normal left ventricular size and systolic function. - E/E prime ratio is between 8 and 15 consistent with indeterminate filling pressures. - Normal right ventricular cavity size and systolic function. Findings Left Ventricle Normal left ventricular size and systolic function. There is moderately increased left ventricular wall thickness. The visually estimated ejection fraction is between 60-65%. There is no evidence of regional wall motion abnormalities. Abnormal diastolic function is noted. Spectral Doppler is indicative of an impaired relaxation filling pattern. E/E prime ratio is between 8 and 15 consistent with indeterminate filling pressures. Right Ventricle Normal right ventricular cavity size and systolic function. Atria Both atria are normal in size. Aortic Valve Normal aortic valve structure and function. There is no aortic valve stenosis. There is no aortic valve regurgitation. Mitral Valve Normal mitral valve structure and function. There is no mitral valve regurgitation. There is no mitral valve stenosis. Pulmonic Valve The pulmonic valve is likely normal. Tricuspid Valve Normal tricuspid valve structure and function. There is trace tricuspid valve regurgitation. Tricuspid regurgitation envelope is inadequate for calculation of right ventricular systolic pressure. Normal right atrial pressure. Great Vessels All visible segments of the aorta are normal in size. The visualized portions of the pulmonary artery and branches are normal. Venous The inferior vena cava is normal in size and collapses greater than 50% with inspiration. Pericardium/Pleural There is no evidence of pericardial effusion. Prior Study Comparison No significant change compared to prior study dated: 12/24/2019. Measurements 2D Linear Measurements IVSd: 1.30 0.6-0.9/0.6-1.0 cm LVIDd: 5.07 3.9-5.3/4.2-5.9 cm LVIDd Index: 2.17 2.4-3.2/2.2-3.1 cm/m2 LVIDs: 3.35 2.0-3.6 cm LVPWd: 1.34 0.7-1.1 cm Ao Root: 3.90 2.1-3.5 cm LA Diam: 3.90 2.7-3.8/3.0-4.0 cm LAIDs Index: 1.67 1.5-2.3 cm/m2 LV Mass: 341.11 67-162/88-224 g LV Mass Index: 145.77 43-95/49-115 g/m2 LVOT Diam: 2.60 3.0+(-)1.3 cm 2D Systolic Function EF 4C: 74.60 >55% EF 2C: 67.00 >55% EF BiP: 72.20 >55% Mitral Valve MV Pk E: 0.63 MV PK A: 0.98 MV Decel Time: 117.00 E/A: 0.60 E'Lateral: 5.98 E'Medial: 4.68 E/E' Med: 13.40 E/E' Lat: 10.50 PHT: 34.00 MVA PHT: 6.47 Decel Shannon: 5.35 Aortic Valve AoV Pk Conrado: 1.68 AoV Mn Conrdao: 1.21 AoV VTI: 0.33 AoV Pk Grad: 11.00 Aov Mn Grad: 7.00 KARLA Cont.VTI: 3.24 LVOT LVOT Pk Conrado: 0.97 LVOT Mn Conrado: 0.67 LVOT VTI: 0.20 LVOT Pk Grad: 4.00 LVOT Mn Grad: 2.00 LVOT Diam: 2.60 LVOT Area: 5.31 Diastolic Function MV Pk E: 0.63 MV Pk A: 0.98 E/A: 0.60 E'Medial: 4.68 E/E' Med: 13.40 E' Laterial: 5.98 E/E' Lat: 10.50 Right Ventricle TAPSE (mm): 30.00 TVS' Conrado: 12.00 Tricuspid Valve TR Pk Conrado: 2.02 TR Pk Grad: 16.00 Great Vessels Aorta Ao Root-2D: 3.90 2.0-3.7 cm Ao Asc: 3.30 2.1-3.4 cm Pulmonary Valve PV Pk Conrado: 0.81 Peak PV Grad: 3.00 Updated in Other Vendor System with Status of Final Grant Jimenez MD electronically signed on 05/24/2021 8:34:23 PM with status of Final
[2021-05-24] MEDS: Heparin Sodium,Porcine/1/2NS 25,000 UNIT/250 ML IV.SOLN 18.14 UNIT IVCONT ×2 (10:45→21:57)
[2021-05-24] MEDS: Heparin Sodium,Porcine 5,000 UNIT/ML VIAL 4500 UNIT IVPUSH ×2 (10:45→23:20)
--- NOTE | 2021-05-24 11:38 | PC.NURSE ---
Pt's daughter Elisa: [phone]
[2021-05-24] MEDS: Famotidine 20 MG TABLET PO ×2 (11:42→21:59)
--- NOTE | 2021-05-24 11:45 | PC.NURSE ---
RN aware of POC 133
[2021-05-24 11:51] LABS: Glucose, Whole Blood 133 mg/dL (60-115)
--- NOTE | 2021-05-24 12:02 | MHC.CM.PN ---
EMR REVIEWED, PT ADMITTED W/PE AND RECENT DIAGNOSIS OF COVID ON 05/04/21, PT REPORTS HE IS UNVACCINATED AND REPORTS HE DOESN'T PLAN ON GETTING VACCINAED HIS DTR HAS HAD THE VACCINE AND BOOSTER AND GOTTEN COVID 3X'S, PT REPORTS HE WORKS [employer], INDEPENDENT W/ALL CARE, NO DME AND NO HOME SERVICES, PT VERIFIES PCP MARGARITA BENIETZ AND HIS TORRES [phone] HIS HCP, COPY REQUESTED. D/C PLAN: HOME SELF-CARE, FAMILY FOR TRANSPORT.
--- NOTE | 2021-05-24 13:30 | HO.PM.IMPN ---
Subjective Subjective Date of Service: 05/24/21 Interval History: cc: sob interval history: somewhat better Cardiovascular Cardiovascular: Reports no additional cardiovascular complaints Respiratory Respiratory: Reports no additional respiratory complaints Physical Exam Vital Signs: Vital Signs: Last Vital Signs Temp 97.7 F 05/24/21 11:22 Pulse 92 05/24/21 11:22 Resp 18 05/24/21 11:22 BP 114/73 05/24/21 11:22 Pulse Ox 95 05/24/21 11:22 BMI result Body Mass Index 33.9 General: AO X 3, no acute distress Resp: CTA bilateral, no accessory muscles used CVS: S1,S2,RRR GI: soft, non tender, non distended Neuro: motor grossly intact, alert Psych: appropriate affect, appropriate insight Objective Data Active Medications Amlodipine Besylate (Amlodipine Besylate 5 Mg Tablet) 5 mg PO DAILY [facility]; Protocol Last Admin: 05/24/21 08:24 Dose: 5 mg Documented by: FERNY Atenolol (Atenolol 25 Mg Tablet) 25 mg PO DAILY [facility]; Protocol Last Admin: 05/24/21 08:25 Dose: 25 mg Documented by: FERNY Famotidine (Famotidine 20 Mg Tablet) 20 mg PO BID@1000,2200 [facility] Last Admin: 05/24/21 11:42 Dose: 20 mg Documented by: FRENY Heparin Sodium (Porcine) (Heparin Sodium,Porcine 5,000 Unit/Ml Vial) 4,500 unit 40 unit/kg (4500 unit) IVPUSH PROTOCOL BOLUS PRN; Protocol PRN Reason: 40 unit/kg - Heparin Protocol Last Admin: 05/24/21 10:45 Dose: 4,500 unit Documented by: FERNY Heparin Sodium (Porcine) (Heparin Sodium,Porcine 5,000 Unit/Ml Vial) 9,100 unit 80 unit/kg (9100 unit) IVPUSH PROTOCOL BOLUS PRN; Protocol PRN Reason: 80 unit/kg - Heparin Protocol Hydrochlorothiazide (Hydrochlorothiazide 25 Mg Tablet) 25 mg PO DAILY [facility]; Protocol Last Admin: 05/24/21 08:25 Dose: 25 mg Documented by: FERNY Heparin Sodium/Sodium Chloride () 25,000 unit in 250 mls @ 0 mls/hr IVCONT .Q0M [facility]; Protocol Last Admin: 05/24/21 10:45 Dose: 14 units/kg/hr, 15.88 mls/hr Documented by: FERNY Cosigned by: CHRIST Insulin Human Lispro (Insulin Lispro 100 Unit/Ml 3 Ml Vial) 0 unit SUBCUT QIDACHS [facility]; Protocol Last Admin: 05/24/21 11:56 Dose: Not Given Documented by: FERNY Non-Admin Reason: No Insulin Coverage Comments: B/S 133 Morphine Sulfate (Morphine Sulfate 4 Mg/Ml Cartridge) 4 mg IVPUSH RQ4H PRN; Protocol PRN Reason: Pain, Moderate (Pain Scale 4-6 Last Admin: 05/24/21 08:25 Dose: 4 mg Documented by: FERNY Pharmacy Consult (Consult Rx Perform Med Rec) 1 each MISCELLANE ONCE PRN PRN Reason: Consult order Sodium Chloride (0.9 % Sodium Chloride Flush 3 Ml Syringe) 3 ml IVFLUSH [facility] Last Admin: 05/24/21 07:54 Dose: Not Given Documented by: FERNY Non-Admin Reason: Med Not Available Labs CBC & Chem 7: 05/24/21 03:40 05/24/21 03:41 Labs: Laboratory Results - last 24 hr 05/23/21 05/23/21 05/23/21 15:37 15:37 15:37 MCV Cancelled MCH Cancelled MCHC Cancelled RDW Cancelled Plt Count Cancelled MPV Cancelled Immature Gran % (Auto) Cancelled Neut % (Auto) Cancelled Lymph % (Auto) Cancelled Faulkner % (Auto) Cancelled Eos % (Auto) Cancelled Baso % (Auto) Cancelled Lymph # (Auto) Cancelled Faulkner # (Auto) Cancelled Eos # (Auto) Cancelled Baso # (Auto) Cancelled Abs Immat Gran (auto) Cancelled Absolute Neuts (auto) Cancelled Absolute Nucleated RBC Cancelled Nucleated RBC % (auto) Cancelled PT INR APTT PTT (Heparin Protocol) Anion Gap 16 Estim Creat Clear Calc 123.3 Estimated GFR > 60 POC Glucose Random Glucose 134 H Fasting Glucose Calcium 9.1 Magnesium 2.2 Total Bilirubin 1.4 H Direct Bilirubin 0.8 H AST 50 H ALT 110 H Alkaline Phosphatase 251 H Troponin I High Sens B-Natriuretic Peptide Total Protein 8.0 Albumin 3.4 L COVID-19 (KELLY) Negative COVID-19 Clin Com See Note 05/23/21 05/23/21 05/23/21 15:37 15:37 15:38 MCV 89.8 MCH 29.2 MCHC 32.5 RDW 13.4 Plt Count 497 H MPV 8.9 L Immature Gran % (Auto) Neut % (Auto) Lymph % (Auto) Faulkner % (Auto) Eos % (Auto) Baso % (Auto) Lymph # (Auto) Faulkner # (Auto) Eos # (Auto) Baso # (Auto) Abs Immat Gran (auto) Absolute Neuts (auto) Absolute Nucleated RBC 0.000 Nucleated RBC % (auto) 0.0 PT 16.1 H INR 1.4 H APTT 38.5 H PTT (Heparin Protocol) Anion Gap Estim Creat Clear Calc Estimated GFR POC Glucose Random Glucose Fasting Glucose Calcium Magnesium Total Bilirubin Direct Bilirubin AST ALT Alkaline Phosphatase Troponin I High Sens 32.8 B-Natriuretic Peptide 78 Total Protein Albumin COVID-19 (KELLY) COVID-TraktoPRO 05/23/21 05/23/21 05/23/21 15:38 21:29 21:29 MCV MCH MCHC RDW Plt Count MPV Immature Gran % (Auto) Neut % (Auto) Lymph % (Auto) Faulkner % (Auto) Eos % (Auto) Baso % (Auto) Lymph # (Auto) Faulkner # (Auto) Eos # (Auto) Baso # (Auto) Abs Immat Gran (auto) Absolute Neuts (auto) Absolute Nucleated RBC Nucleated RBC % (auto) PT Cancelled INR Cancelled APTT PTT (Heparin Protocol) Cancelled 63.5 Anion Gap Estim Creat Clear Calc Estimated GFR POC Glucose 207 H Random Glucose Fasting Glucose Calcium Magnesium Total Bilirubin Direct Bilirubin AST ALT Alkaline Phosphatase Troponin I High Sens B-Natriuretic Peptide Total Protein Albumin COVID-19 (KELLY) COVID-TraktoPRO 05/24/21 05/24/21 05/24/21 03:40 03:40 03:40 MCV 91.0 MCH 29.6 MCHC 32.5 RDW 13.3 Plt Count 425 H MPV 8.8 L Immature Gran % (Auto) Neut % (Auto) Lymph % (Auto) Faulkner % (Auto) Eos % (Auto) Baso % (Auto) Lymph # (Auto) Faulkner # (Auto) Eos # (Auto) Baso # (Auto) Abs Immat Gran (auto) Absolute Neuts (auto) Absolute Nucleated RBC 0.000 Nucleated RBC % (auto) 0.0 PT Cancelled 15.6 H INR Cancelled 1.4 H APTT PTT (Heparin Protocol) 57.8 Anion Gap Estim Creat Clear Calc Estimated GFR POC Glucose Random Glucose Fasting Glucose Calcium Magnesium Total Bilirubin Direct Bilirubin AST ALT Alkaline Phosphatase Troponin I High Sens B-Natriuretic Peptide Total Protein Albumin COVID-19 (KELLY) COVID-19 Clin Com 05/24/21 05/24/21 05/24/21 03:41 08:18 09:25 MCV MCH MCHC RDW Plt Count MPV Immature Gran % (Auto) Neut % (Auto) Lymph % (Auto) Faulkner % (Auto) Eos % (Auto) Baso % (Auto) Lymph # (Auto) Faulkner # (Auto) Eos # (Auto) Baso # (Auto) Abs Immat Gran (auto) Absolute Neuts (auto) Absolute Nucleated RBC Nucleated RBC % (auto) PT INR APTT PTT (Heparin Protocol) 44.6 L D Anion Gap 13 Estim Creat Clear Calc 142.7 Estimated GFR > 60 POC Glucose 150 H Random Glucose Fasting Glucose 158 H D Calcium 8.7 Magnesium Total Bilirubin 0.7 Direct Bilirubin AST 31 ALT 82 H Alkaline Phosphatase 207 H Troponin I High Sens B-Natriuretic Peptide Total Protein 6.7 Albumin 2.9 L COVID-19 (KELLY) COVID-19 [email or web address] Com 05/24/21 11:44 MCV MCH MCHC RDW Plt Count MPV Immature Gran % (Auto) Neut % (Auto) Lymph % (Auto) Faulkner % (Auto) Eos % (Auto) Baso % (Auto) Lymph # (Auto) Faulkner # (Auto) Eos # (Auto) Baso # (Auto) Abs Immat Gran (auto) Absolute Neuts (auto) Absolute Nucleated RBC Nucleated RBC % (auto) PT INR APTT PTT (Heparin Protocol) Anion Gap Estim Creat Clear Calc Estimated GFR POC Glucose 133 H Random Glucose Fasting Glucose Calcium Magnesium Total Bilirubin Direct Bilirubin AST ALT Alkaline Phosphatase Troponin I High Sens B-Natriuretic Peptide Total Protein Albumin COVID-19 (KELLY) COVID-19 Clin Com Assessment and Plan (1) Acute deep vein thrombosis (DVT) of right lower extremity: Status: Acute (2) Pulmonary embolism: Status: Acute Assessment and Plan: 54M recently recovered from COVID, presented with rle pain, sob, found to have extensive right DVT and bilateral PE. extensive pulmonary embolism and DVT likely due to recent covid heparin vascular eval, ? catheter directed tpa/filter follow up echo monitor ptt, cbc htn atenolol, amlodpine, hctz dm insulin Quality Stroke Does the patient have a stroke diagnosis?: No VTE Prior VTE?: No VTE Risk Level:: Medical - moderate - high VTE Device Contraindication: Treatment Not Indicated VTE Drug Contraindication: N/A - Med Ordered
[2021-05-24 16:52] LABS: PTT Heparin Drip 57.7 SEC (53-77.9)
[2021-05-24 17:52] LABS: Glucose, Whole Blood 139 mg/dL (60-115)
--- NOTE | 2021-05-24 19:00 | PC.NURSE ---
Pt aaox4, resting on stretcher in NAD, breathing with ease on RA, VSS. Pt speaking in complete clear sentences. Pt heparin gtt infusing appropriately through L AC at 16u/kg/h at this time as charted by previous RN. Pt stretcher in lowest locked position, rails raised, call guerrero within reach.
[2021-05-24 21:04] LABS: Glucose, Whole Blood 159 mg/dL (60-115)
[2021-05-24] MEDS: Insulin Lispro 100 UNIT/ML 3 ML VIAL SUBCUT (21:59)
[2021-05-24 22:59] LABS: PTT Heparin Drip 42.7 SEC (53-77.9)
[2021-05-24] MEDS: Heparin Sodium,Porcine/1/2NS 25,000 UNIT/250 ML IV.SOLN 20.41 UNIT IVCONT (23:20)
--- NOTE | 2021-05-25 02:12 | PC.NURSE ---
Report called to Deja ACOSTA in overflow. Tejal ACOSTA to transport pt on heparin gtt
[2021-05-25 03:37] VITALS: BP 116/74; PULSE 89; RESP 19; TEMP 36.8; O2SAT 95
[2021-05-25 05:44] LABS: MANUAL DIFF FLAG NO
[2021-05-25 05:46] LABS: Basophils Percent Auto 0.2 % (0-2); Eosinophils Absolute Auto 0.1 X10*3/uL (0.0-0.4); Eosinophils Percent Auto 0.4 % (0-4); Hematocrit 35.2 % (42.0-52.0); Hemoglobin 11.5 g/dl (14.0-18.0); Imm Gran Abs Auto 0.11 X10*3/uL (0.00-0.03); Lymphocytes Absolute Auto 1.5 X10*3/uL (1.2-4.9); Lymphocytes Percent Auto 13.5 % (20-40); Mean Corpuscular HGB Conc 32.7 g/dl (31.0-36.0); Mean Corpuscular Hemoglobin 29.6 pg (27.0-33.0); Mean Corpuscular Volume 90.5 fL (80.0-98.0); Mean Platelet Volume 8.9 fL (9.4-12.4); Monocytes Absolute Auto 0.8 X10*3/uL (0.1-1.2); Monocytes Percent Auto 6.7 % (2-11); Neutrophils Absolute Auto 8.7 x10*3/uL (2.0-8.3); Neutrophils Percent Auto 78.2 % (45-73); Platelet Count 415 X10*3/uL (160-400); Red Blood Count 3.89 X10*6/uL (4.60-5.80); Red Cell Distribution Width 13.6 % (11.0-16.0); White Blood Count 11.2 X10*3/uL (4.8-10.8)
[2021-05-25] MEDS: Morphine Sulfate 4 MG/ML CARTRIDGE IVPUSH ×2 (05:50→10:06)
[2021-05-25 06:03] LABS: PTT Heparin Drip 67.9 SEC (53-77.9)
[2021-05-25 06:24] LABS: Alanine Aminotransferase 87 U/L (0-40); Albumin Level 2.9 g/dL (3.5-5.0); Alkaline Phosphatase 180 U/L (39-117); Anion Gap 14 (12-20); Aspartate Amino Transferase 45 U/L (5-37); Bilirubin Total 0.6 mg/dL (0.0-1.0); Blood Urea Nitrogen 21 mg/dL (9-16); Calcium 8.7 mg/dL (8.4-10.2); Carbon Dioxide 26 mmol/L (22-29); Chloride 99 mmol/L (96-108); Creatinine Clr Calc Pharmacy 148.6; Estimated Glomerular Filt Rate > 60; Glucose Fasting 106 mg/dL (60-99); Potassium 4.5 mmol/L (3.3-5.1); Sodium 134 mmol/L (135-145); Total Protein 6.7 g/dL (6.5-8.0)
[2021-05-25 08:40] LABS: Glucose, Whole Blood 104 mg/dL (60-115)
--- NOTE | 2021-05-25 09:15 | PM.CNGS ---
History of Present Illness Consult details Consult date: 05/25/21 Reason for consult: other (dvt/pe) Narrative: Complex 55-year-old gentleman with prior history cerebral aneurysms that have been coiled. And a questionable history of a AK versus stroke presents for evaluation for DVT and PE. Had contracted COVID. He subsequently developed some discomfort of the right lower extremity and shortness of breath. He was brought to his primary care doctor or with subsequently discovered on ultrasound a DVT. He was subsequently admitted in anticoagulated with heparin. He now presents for vascular evaluation. Review of Systems Constitutional: Constitutional: Reports as per HPI ENT: Reports system reviewed and no additional complaints, except as documented Cardiovascular: Cardiovascular: Denies chest pain, Denies chest pain at rest and Denies chest pain with activity Respiratory: Respiratory: Denies chest congestion and Denies cough Gastrointestinal: Gastrointestinal: Reports no additional gastrointestinal complaints Musculoskeletal: Musculoskeletal: Denies abnormal gait Integumentary/Breasts: Skin/Breast: Reports pruritus and Denies wounds Neurologic: Reports system reviewed and no additional complaints, except as documented and Denies abnormal gait Psychiatric: Psychiatric: Denies no additional psychiatric complaints [facility] Past Medical History Medical History Anemia Aortic root dilatation BPH (benign prostatic hyperplasia) Cerebral aneurysm Cogwheel rigidity CVA (cerebral vascular accident) HTN (hypertension) Tremor Family History Family History Father Cancer of prostate Mother No problems noted. Daughter No problems noted. Surgical History Surgical History History of brain surgery Social History Social History Alcohol intake: current Alcohol intake frequency: does not drink Patient Tobacco Use Status: Former Tobacco user Years Smoked: quit 20 years ago e-Cigarette/Vaping Use: Never Used Second Hand Smoke Exposure: Yes Use of substances other than those prescribed or required for medical reasons: No Advance Directives: Yes Advance Directives Information Provided: No Advance Directives on File: No service: No Current occupational status: employed Current occupation: [employer] Current occupational exposures/hazards: No Meds Allergies Allergy/AdvReac Type Severity Reaction Status Date / Time Iodinated Contrast Media Allergy Unknown HIVES Verified 05/23/21 10:48 [IV CONTRAST] IVP dye Allergy Unknown hives Uncoded 05/23/21 10:48 Active Medications: Current Medications Amlodipine Besylate (Amlodipine Besylate 5 Mg Tablet) 5 mg PO DAILY [facility]; Protocol Last Admin: 05/24/21 08:24 Dose: 5 mg Documented by: Atenolol (Atenolol 25 Mg Tablet) 25 mg PO DAILY [facility]; Protocol Last Admin: 05/24/21 08:25 Dose: 25 mg Documented by: Famotidine (Famotidine 20 Mg Tablet) 20 mg PO BID@1000,2200 [facility] Last Admin: 05/24/21 21:59 Dose: 20 mg Documented by: Heparin Sodium (Porcine) (Heparin Sodium,Porcine 5,000 Unit/Ml Vial) 4,500 unit 40 unit/kg (4500 unit) IVPUSH PROTOCOL BOLUS PRN; Protocol PRN Reason: 40 unit/kg - Heparin Protocol Last Admin: 05/24/21 23:20 Dose: 4,500 unit Documented by: Heparin Sodium (Porcine) (Heparin Sodium,Porcine 5,000 Unit/Ml Vial) 9,100 unit 80 unit/kg (9100 unit) IVPUSH PROTOCOL BOLUS PRN; Protocol PRN Reason: 80 unit/kg - Heparin Protocol Hydrochlorothiazide (Hydrochlorothiazide 25 Mg Tablet) 25 mg PO DAILY [facility]; Protocol Last Admin: 05/24/21 08:25 Dose: 25 mg Documented by: Heparin Sodium/Sodium Chloride () 25,000 unit in 250 mls @ 0 mls/hr IVCONT .Q0M [facility]; Protocol Last Titration: 05/25/21 06:39 Dose: 18 units/kg/hr, 20.41 mls/hr Documented by: Insulin Human Lispro (Insulin Lispro 100 Unit/Ml 3 Ml Vial) 0 unit SUBCUT QIDACHS [facility]; Protocol Last Admin: 05/24/21 21:59 Dose: 2 unit Documented by: Morphine Sulfate (Morphine Sulfate 4 Mg/Ml Cartridge) 4 mg IVPUSH RQ4H PRN; Protocol PRN Reason: Pain, Moderate (Pain Scale 4-6 Last Admin: 05/25/21 05:50 Dose: 4 mg Documented by: Pharmacy Consult (Consult Rx Perform Med Rec) 1 each MISCELLANE ONCE PRN PRN Reason: Consult order Sodium Chloride (0.9 % Sodium Chloride Flush 3 Ml Syringe) 3 ml IVFLUSH QSHIFT RAJESH Last Admin: 05/25/21 00:23 Dose: Not Given Documented by: Home Medications Medication Instructions Recorded Confirmed Last Taken Type thiamine mononitrate (vit B1) 100 100 mg PO DAILY 06/15/20 05/23/21 05/22/21 History mg tablet Physical Exam Vital Signs: Vital Signs: Last Vital Signs Temp 98.3 F 05/25/21 03:37 Pulse 89 05/25/21 03:37 Resp 19 05/25/21 03:37 BP 116/74 05/25/21 03:37 Pulse Ox 95 05/25/21 03:37 BMI result Body Mass Index 33.9 Const: General: cooperative, healthy appearing and comfortable Orientation/consciousness: oriented to person, oriented to place and oriented to time Neck: Carotids: no bruits Chest: Chest palpation & inspection: normal inspection of the chest and normal palpation of entire chest wall Resp: Effort & Inspection: normal respiratory effort and able to speak in complete sentences Cardio: Rate: regular rate Heart sounds: S1 normal heart sound present and S2 normal heart sound present Peripheral pulses: Peripheral pulses 2+ throughout GI: Inspection: Yes normal to inspection Skin: Other: +2 edema, right leg. No significant swelling left leg General skin exam: dry skin Neuro: General: oriented to person, oriented to place and oriented to time Extrem: General: Yes edema Right lower extremity: full ROM, normal capillary refill and edema Left lower extremity: full ROM, normal capillary refill and edema Psych: Mental Status: mental status grossly normal Results Labs Result diagrams: 05/25/21 05:39 05/25/21 05:39 Labs: Abnormal lab results 05/24/21 05/24/21 05/24/21 Range/Units 09:25 11:44 17:48 WBC (4.8-10.8) X10*3/uL RBC (4.60-5.80) X10*6/uL Hgb (14.0-18.0) g/dl Hct (42.0-52.0) % Plt Count (160-400) X10*3/uL MPV (9.4-12.4) fL Immature Gran % (Auto) (0.0-0.4) % Neut % (Auto) (45-73) % Lymph % (Auto) (20-40) % Abs Immat Gran (auto) (0.00-0.03) X10*3/uL Absolute Neuts (auto) (2.0-8.3) x10*3/uL PTT (Heparin Protocol) 44.6 L D (53-77.9) SEC Sodium (135-145) mmol/L BUN (9-16) mg/dL POC Glucose 133 H 139 H (60-115) mg/dL Fasting Glucose (60-99) mg/dL AST (5-37) U/L ALT (0-40) U/L Alkaline Phosphatase (39-117) U/L Albumin (3.5-5.0) g/dL 05/24/21 05/24/21 05/25/21 Range/Units 20:59 22:40 05:39 WBC (4.8-10.8) X10*3/uL RBC (4.60-5.80) X10*6/uL Hgb (14.0-18.0) g/dl Hct (42.0-52.0) % Plt Count (160-400) X10*3/uL MPV (9.4-12.4) fL Immature Gran % (Auto) (0.0-0.4) % Neut % (Auto) (45-73) % Lymph % (Auto) (20-40) % Abs Immat Gran (auto) (0.00-0.03) X10*3/uL Absolute Neuts (auto) (2.0-8.3) x10*3/uL PTT (Heparin Protocol) 42.7 L D (53-77.9) SEC Sodium 134 L (135-145) mmol/L BUN 21 H (9-16) mg/dL POC Glucose 159 H (60-115) mg/dL Fasting Glucose 106 H (60-99) mg/dL AST 45 H D (5-37) U/L ALT 87 H (0-40) U/L Alkaline Phosphatase 180 H (39-117) U/L Albumin 2.9 L (3.5-5.0) g/dL 05/25/21 Range/Units 05:39 WBC 11.2 H (4.8-10.8) X10*3/uL RBC 3.89 L (4.60-5.80) X10*6/uL Hgb 11.5 L (14.0-18.0) g/dl Hct 35.2 L (42.0-52.0) % Plt Count 415 H (160-400) X10*3/uL MPV 8.9 L (9.4-12.4) fL Immature Gran % (Auto) 1.0 H (0.0-0.4) % Neut % (Auto) 78.2 H (45-73) % Lymph % (Auto) 13.5 L (20-40) % Abs Immat Gran (auto) 0.11 H (0.00-0.03) X10*3/uL Absolute Neuts (auto) 8.7 H (2.0-8.3) x10*3/uL PTT (Heparin Protocol) (53-77.9) SEC Sodium (135-145) mmol/L BUN (9-16) mg/dL POC Glucose (60-115) mg/dL Fasting Glucose (60-99) mg/dL AST (5-37) U/L ALT (0-40) U/L Alkaline Phosphatase (39-117) U/L Albumin (3.5-5.0) g/dL Short CBC 05/25/21 05/25/21 Range/Units 05:39 05:39 WBC Cancelled 11.2 H Hgb Cancelled 11.5 L Hct Cancelled 35.2 L Plt Count Cancelled 415 H BMP 05/25/21 05:39 Sodium 134 L Potassium 4.5 Chloride 99 Carbon Dioxide 26 BUN 21 H Creatinine 0.73 Calcium 8.7 Liver Function 05/25/21 Range/Units 05:39 Total Bilirubin 0.6 (0.0-1.0) mg/dL AST 45 H D (5-37) U/L ALT 87 H (0-40) U/L Alkaline Phosphatase 180 H (39-117) U/L Albumin 2.9 L (3.5-5.0) g/dL All other labs normal. Assessment and Plan (1) Acute deep vein thrombosis (DVT) of right lower extremity: Status: Acute In short patient has right lower extremity DVT with PE. I did review the ultrasound and it appears that it is more lower and he does not have an ileal femoral segment that is occluded. I also did review CT scan which demonstrated the pulmonary embolisms. addition he has this prior history cerebral aneurysms in questionable stroke. He is not an ideal candidate for thrombolysis. Would recommend oral anticoagulation with a direct oral anticoagulant such as Xarelto or Eliquis. We did discuss routine conservative measures including use of compression stockings leg elevation and ambulation. We will follow on an as-needed basis. Thank you for allowing us to participate in his care. If there are any questions or concerns please do not hesitate to contact us. Procedures Date of Service Date of Service: 05/25/21
[2021-05-25] MEDS: hydroCHLOROthiazide 25 MG TABLET PO (09:35)
[2021-05-25] MEDS: atenoloL 25 MG TABLET PO (09:35)
[2021-05-25] MEDS: amLODIPine Besylate 5 MG TABLET PO (09:35)
[2021-05-25] MEDS: Apixaban 5 MG TABLET 10 MG PO (10:05)
[2021-05-25 10:07] VITALS: BP 105/68; PULSE 106; RESP 18; O2SAT 96
--- NOTE | 2021-05-25 10:37 | PM.DS ---
DS: Providers Provider Date of Service: 05/25/21 Date of admission: 05/23/21 16:57 Primary care physician: FRANCISCA Thomas- Consults: 05/24/21 13:28 Consult to Vascular Surgery Routine Consulting Provider: Jann Leone Reason for consultation: post covid dvt/pe DS: Diagnosis Discharge Diagnosis (1) Acute deep vein thrombosis (DVT) of right lower extremity: Status: Acute DS: Summary Hospital Course Hospital Course: Patient was admitted for acute pulmonary embolism and right lower extremity DVT with high clot burden due to recent COVID infection. Due to high clot burden he was admitted and started on IV heparin. Hemoglobin remained stable, echocardiogram did not show RV strain, he was seen by vascular surgery for possible catheter directed tPA/ filter however was deemed not to be a good candidate due to history of cerebral aneurysm. patient is feeling better and will be discharged home on Eliquis. 10 mg twice daily for 7 days then 5 mg twice daily. duration to be decided, but likely 6 months. Time Spent with Patient Time attestation: Total time spent providing and/or coordinating discharge services: Discharge coordination time: Greater than 30 minutes Quality: Stroke Does the patient have a stroke diagnosis?: No Physical Exam Vital Signs: Vital Signs: Last Vital Signs Temp 98.3 F 05/25/21 03:37 Pulse 106 H 05/25/21 10:07 Resp 18 05/25/21 10:07 BP 105/68 05/25/21 10:07 Pulse Ox 96 05/25/21 10:07 BMI result Body Mass Index 33.9 General: AO X 3, no acute distress Resp: CTA bilateral, no accessory muscles used CVS: S1,S2,RRR GI: soft, non tender, non distended Neuro: motor grossly intact, alert Psych: appropriate affect, appropriate insight DS: Data Data Completed and Pending Labs on day of discharge: Laboratory Results - last 24 hr 05/24/21 05/24/21 05/24/21 11:44 16:31 17:48 WBC RBC Hgb Hct MCV MCH MCHC RDW Plt Count MPV Immature Gran % (Auto) Neut % (Auto) Lymph % (Auto) Graves % (Auto) Eos % (Auto) Baso % (Auto) Lymph # (Auto) Graves # (Auto) Eos # (Auto) Baso # (Auto) Abs Immat Gran (auto) Absolute Neuts (auto) Absolute Nucleated RBC Nucleated RBC % (auto) PTT (Heparin Protocol) 57.7 D Sodium Potassium Chloride Carbon Dioxide Anion Gap BUN Creatinine Estim Creat Clear Calc Estimated GFR POC Glucose 133 H 139 H Fasting Glucose Calcium Total Bilirubin AST ALT Alkaline Phosphatase Total Protein Albumin 05/24/21 05/24/21 05/25/21 20:59 22:40 05:39 WBC Cancelled RBC Cancelled Hgb Cancelled Hct Cancelled MCV Cancelled MCH Cancelled MCHC Cancelled RDW Cancelled Plt Count Cancelled MPV Cancelled Immature Gran % (Auto) Neut % (Auto) Lymph % (Auto) Graves % (Auto) Eos % (Auto) Baso % (Auto) Lymph # (Auto) Graves # (Auto) Eos # (Auto) Baso # (Auto) Abs Immat Gran (auto) Absolute Neuts (auto) Absolute Nucleated RBC Cancelled Nucleated RBC % (auto) Cancelled PTT (Heparin Protocol) 42.7 L D Sodium Potassium Chloride Carbon Dioxide Anion Gap BUN Creatinine Estim Creat Clear Calc Estimated GFR POC Glucose 159 H Fasting Glucose Calcium Total Bilirubin AST ALT Alkaline Phosphatase Total Protein Albumin 05/25/21 05/25/21 05/25/21 05:39 05:39 05:39 WBC 11.2 H RBC 3.89 L Hgb 11.5 L Hct 35.2 L MCV 90.5 MCH 29.6 MCHC 32.7 RDW 13.6 Plt Count 415 H MPV 8.9 L Immature Gran % (Auto) 1.0 H Neut % (Auto) 78.2 H Lymph % (Auto) 13.5 L Graves % (Auto) 6.7 Eos % (Auto) 0.4 Baso % (Auto) 0.2 Lymph # (Auto) 1.5 Graves # (Auto) 0.8 Eos # (Auto) 0.1 Baso # (Auto) 0.0 Abs Immat Gran (auto) 0.11 H Absolute Neuts (auto) 8.7 H Absolute Nucleated RBC 0.000 Nucleated RBC % (auto) 0.0 PTT (Heparin Protocol) 67.9 D Sodium 134 L Potassium 4.5 Chloride 99 Carbon Dioxide 26 Anion Gap 14 BUN 21 H Creatinine 0.73 Estim Creat Clear Calc 148.6 Estimated GFR > 60 POC Glucose Fasting Glucose 106 H Calcium 8.7 Total Bilirubin 0.6 AST 45 H D ALT 87 H Alkaline Phosphatase 180 H Total Protein 6.7 Albumin 2.9 L 05/25/21 08:33 WBC RBC Hgb Hct MCV MCH MCHC RDW Plt Count MPV Immature Gran % (Auto) Neut % (Auto) Lymph % (Auto) Graves % (Auto) Eos % (Auto) Baso % (Auto) Lymph # (Auto) Graves # (Auto) Eos # (Auto) Baso # (Auto) Abs Immat Gran (auto) Absolute Neuts (auto) Absolute Nucleated RBC Nucleated RBC % (auto) PTT (Heparin Protocol) Sodium Potassium Chloride Carbon Dioxide Anion Gap BUN Creatinine Estim Creat Clear Calc Estimated GFR POC Glucose 104 Fasting Glucose Calcium Total Bilirubin AST ALT Alkaline Phosphatase Total Protein Albumin Discharge Plan Discharge Patient Disposition: Home, Self-Care Discharge Diagnosis: pe, dvt Referrals: Aryan Angeles, [employer] [Primary Care Provider] - 1 Week Discharge Medications: New Eliquis 5 mg Tablet 10 mg PO BID Qty: 74 RF: 0 Continued atenolol 25 mg tablet 25 mg PO DAILY Qty: 30 RF: 3 amlodipine 5 mg tablet 5 mg PO DAILY Qty: 90 RF: 0 hydrochlorothiazide 25 mg tablet 25 mg PO DAILY Qty: 90 RF: 0 thiamine mononitrate (vit B1) 100 mg tablet 100 mg PO DAILY RF: 0 Discharge Orders: Discharge Order (Routine); Ordered 05/25/21 Ordered By: Francisco Javier Galeana Diet: advance to usual diet Activity on Discharge: As tolerated Stand Alone Forms: Patient Portal Discharge page Care Plan Goals: resolve vte Health Concerns: vte Plan of Treatment: eliquis as prescribed, follow up with pcp Assessment: see above
--- NOTE | 2021-05-25 11:19 | MHC.CM.PN ---
Received notification from Dr Galeana that patient will be discharged home on Eliquis. Met with patient in regards to discharge planning. Eliquis card given and expalined. Patient verbalizing understanding. Patient's daughter will transport him home after she gets out of work at 5pm. Continue to monitor for d/c needs.
[2021-05-25 12:25] VITALS: BP 121/72; PULSE 80; RESP 15; TEMP 36.6; O2SAT 93
== END 2021-05-25 13:00 | disposition home or self-care (01) | DRG 177 ==
LOC: HO.ED 15:48 → HO.EDOVER 17:07
PROVIDERS: Emergency Medicine; Admitting Provider Hospitalist; Emergency Provider Emergency Medicine; PCP Nurse Practitioner Family; Visit Provider Internal Medicine
DX: U07.1 COVID-19 (principal); I26.99 Other pulmonary embolism without acute cor pulmonale; I82.401 Acute embolism and thrombosis of unspecified deep veins of right lower extremity; E11.9 Type 2 diabetes mellitus without complications; I11.0 Hypertensive heart disease with heart failure; Z87.891 Personal history of nicotine dependence; Z79.01 Long term (current) use of anticoagulants; Z79.899 Other long term (current) drug therapy
CPT/HCPCS: 36415; 71045; 71275; 80048; 80053; 80076; 82947; 83735; 83880; 84484; 85025; 85027; 85610; 85730; 87635; 93005; 93306; 99219; 99285; J1100; J1200; J2270; J2930; Q9967

== ENCOUNTER 2021-09-08 10:01 | Outpatient (REF) | payer OTHER, SELFPAY ==
[2021-09-08 11:04] LABS: MANUAL DIFF FLAG NO
[2021-09-08 11:19] LABS: Appearance Urine CLEAR; Color Urine YELLOW; Glucose Urine UA NEG (NEG); Leukocyte Esterase Urine NEG (NEG); Nitrite Urine NEG (NEG); PH 5.5 (5.0-8.0); Specific Gravity - Urine >= 1.030 (1.005-1.025); Urine Blood NEG (NEG); Urine Ketones 5 MG/DL (NEG); Urine Protein NEG (NEG-TRACE)
[2021-09-08 11:20] LABS: Eosinophils Percent Auto 0.2 % (0-4); Hematocrit 47.6 % (42.0-52.0); Hemoglobin 15.4 g/dl (14.0-18.0); Imm Gran Abs Auto 0.02 X10*3/uL (0.00-0.03); Imm Gran Pct Auto 0.4 % (0.0-0.4); Lymphocytes Absolute Auto 0.5 X10*3/uL (1.2-4.9); Lymphocytes Percent Auto 10.1 % (20-40); Mean Corpuscular HGB Conc 32.4 g/dl (31.0-36.0); Mean Corpuscular Hemoglobin 28.8 pg (27.0-33.0); Mean Platelet Volume 9.1 fL (9.4-12.4); Monocytes Absolute Auto 0.4 X10*3/uL (0.1-1.2); Monocytes Percent Auto 8.2 % (2-11); Neutrophils Absolute Auto 3.9 x10*3/uL (2.0-8.3); Neutrophils Percent Auto 81.1 % (45-73); Platelet Count 247 X10*3/uL (160-400); Red Blood Count 5.35 X10*6/uL (4.60-5.80); Red Cell Distribution Width 12.9 % (11.0-16.0); White Blood Count 4.9 X10*3/uL (4.8-10.8)
[2021-09-08 11:30] LABS: Alanine Aminotransferase 15 U/L (0-40); Albumin Level 4.3 g/dL (3.5-5.0); Alkaline Phosphatase 68 U/L (39-117); Anion Gap 14 (12-20); Aspartate Amino Transferase 16 U/L (5-37); Bilirubin Total 1.1 mg/dL (0.0-1.0); Blood Urea Nitrogen 23 mg/dL (9-16); Calcium 9.3 mg/dL (8.4-10.2); Carbon Dioxide 27 mmol/L (22-29); Chloride 101 mmol/L (96-108); Cholesterol 217 mg/dL; Estimated Glomerular Filt Rate > 60; Glucose Fasting 100 mg/dL (60-99); HDL Cholesterol 49 mg/dL; LDL Cholesterol Calculated 156 mg/dl; Potassium 3.5 mmol/L (3.3-5.1); Sodium 138 mmol/L (135-145); Total Protein 7.4 g/dL (6.5-8.0); Triglycerides 63 mg/dL
[2021-09-08 11:53] LABS: Prostate Specific Antigen Scr 0.74 ng/mL (<0.05-4.0)
== END 2021-09-08 10:02 | disposition home or self-care (01) ==
LOC: HO.HMGCLDS 10:01
PROVIDERS: Visit Provider Nurse Practitioner Family
DX: Z00.00 Encounter for general adult medical examination without abnormal findings (principal); Z12.5 Encounter for screening for malignant neoplasm of prostate
CPT/HCPCS: 36415; 80053; 80061; 81003; 84153; 84443; 85025

== ENCOUNTER 2021-11-19 08:12 | Outpatient (REF) | payer OTHER, SELFPAY ==
[2021-11-19 11:18] LABS: Cholesterol 165 mg/dL; HDL Cholesterol 48 mg/dL; LDL Cholesterol Calculated 96 mg/dl; Triglycerides 106 mg/dL
== END 2021-11-19 08:13 | disposition home or self-care (01) ==
LOC: HO.HMGCLDS 08:12
PROVIDERS: Visit Provider Nurse Practitioner Family
DX: E78.5 Hyperlipidemia, unspecified (principal)
CPT/HCPCS: 36415; 80061

== ENCOUNTER 2022-07-22 07:21 | Outpatient (REF) | payer OTHER, SELFPAY ==
[2022-07-22 11:09] LABS: MANUAL DIFF FLAG NO
[2022-07-22 11:15] LABS: Basophils Percent Auto 0.2 % (0-2); Eosinophils Absolute Auto 0.1 X10*3/uL (0.0-0.4); Eosinophils Percent Auto 1.8 % (0-4); Hematocrit 44.4 % (42.0-52.0); Hemoglobin 14.8 g/dl (14.0-18.0); Imm Gran Abs Auto 0.02 X10*3/uL (0.00-0.03); Imm Gran Pct Auto 0.4 % (0.0-0.4); Lymphocytes Absolute Auto 1.5 X10*3/uL (1.2-4.9); Lymphocytes Percent Auto 30.1 % (20-40); Mean Corpuscular HGB Conc 33.3 g/dl (31.0-36.0); Mean Corpuscular Hemoglobin 30.6 pg (27.0-33.0); Mean Corpuscular Volume 91.7 fL (80.0-98.0); Mean Platelet Volume 9.3 fL (9.4-12.4); Monocytes Absolute Auto 0.3 X10*3/uL (0.1-1.2); Monocytes Percent Auto 6.9 % (2-11); Neutrophils Percent Auto 60.6 % (45-73); Platelet Count 265 X10*3/uL (160-400); Red Blood Count 4.84 X10*6/uL (4.60-5.80); Red Cell Distribution Width 12.7 % (11.0-16.0)
[2022-07-22 11:17] LABS: Appearance Urine Clear; Color Urine Yellow; Glucose Urine UA Negative (Negative); Leukocyte Esterase Urine Negative (Negative); Nitrite Urine Negative (Negative); Specific Gravity - Urine 1.025 (1.005-1.025); Urine Blood Negative (Negative); Urine Ketones Negative (Negative); Urine Protein Negative (Neg-Trace)
[2022-07-22 11:30] LABS: D Dimer High Sensitivity < 150 NG/ML
[2022-07-22 11:47] LABS: Alanine Aminotransferase 23 U/L (0-40); Albumin Level 4.2 g/dL (3.5-5.0); Alkaline Phosphatase 77 U/L (39-117); Anion Gap 15 (12-20); Aspartate Amino Transferase 18 U/L (5-37); Bilirubin Total 0.8 mg/dL (0.0-1.0); Blood Urea Nitrogen 17 mg/dL (9-16); Calcium 9.1 mg/dL (8.4-10.2); Carbon Dioxide 26 mmol/L (22-29); Chloride 106 mmol/L (96-108); Cholesterol 152 mg/dL; Estimated Glomerular Filt Rate > 60; Glucose Fasting 101 mg/dL (60-99); HDL Cholesterol 44 mg/dL; LDL Cholesterol Calculated 97 mg/dl; Potassium 3.9 mmol/L (3.3-5.1); Sodium 143 mmol/L (135-145); Total Protein 6.7 g/dL (6.5-8.0); Triglycerides 58 mg/dL
[2022-07-22 11:48] LABS: Prostate Specific Antigen Scr 0.79 ng/mL (<0.05-4.0); TSH reflex Free T4 1.66 uIU/mL (0.32-4.0)
== END 2022-07-22 07:22 | disposition home or self-care (01) ==
LOC: HO.HMGCLDS 07:21
PROVIDERS: Absent Provider Internal Medicine Medical Oncology; PCP Nurse Practitioner Family; Visit Provider Nurse Practitioner Family
DX: Z12.5 Encounter for screening for malignant neoplasm of prostate (principal); I26.99 Other pulmonary embolism without acute cor pulmonale; E78.5 Hyperlipidemia, unspecified
CPT/HCPCS: 36415; 80053; 80061; 81003; 84153; 84443; 85025; 85379

== ENCOUNTER 2023-01-23 16:18 | Outpatient (AMB) | payer OTHER, SELFPAY ==
[2023-01-23 16:21] VITALS: BP 122/80; PULSE 86; O2SAT 96; BMI 36.5
--- NOTE | 2023-01-23 16:21 | A.OFFPC_ITS ---
Vital Signs 01/23/23 16:21 Height 5 ft 10 in Weight 254 lb 4 oz BMI 36.5 BP 122/80 Blood Pressure Location Lt brachial Position Sitting Pulse 86 Pulse Source Pulse Oximeter Pulse Oximetry (%) 96 Oxygen Delivery Method Room Air Intake Visit Reasons: Annual PE Allergies Iodinated Contrast Media [IV CONTRAST] Allergy (Unknown, Verified 01/23/23 16:26) HIVES Medication List - Last Reconciled 01/23/23 by FRANCISCA GoodenTANIA amlodipine 5 mg PO DAILY atenolol 25 mg PO DAILY atorvastatin 20 mg PO BEDTIME 90 days hydrochlorothiazide 25 mg PO DAILY thiamine mononitrate (vit B1) 100 mg PO DAILY Tobacco use date assessed: 01/23/23 HPI Annual PE HPI Details Pt is here for a PE. Will order labs. Colon screen is up to date. PSA is up to date. [facility] Medical History BPH (benign prostatic hyperplasia) Tremor Cogwheel rigidity Anemia Cerebral aneurysm HTN (hypertension) CVA (cerebral vascular accident) Aortic root dilatation Surgical History History of brain surgery Family History Father Cancer of prostate Mother No problems noted. Daughter No problems noted. Social History Household Members: Spouse and Children Housing: House Are you a primary career agent to a significant other at home: No Do you presently have visiting nurse or other home services: No Alcohol intake: current Alcohol intake frequency: does not drink Patient Tobacco Use Status: Former Tobacco user Years Smoked: quit 20 years ago e-Cigarette/Vaping Use: Never Used Second Hand Smoke Exposure: Yes service: No Current occupational status: employed Current occupation: [employer] Current occupational exposures/hazards: No Cognitive needs: No Hearing needs: No Vision needs: No Questionnaire Thrive Questionnaire Date Thrive assessed: 07/18/22 HERMELINDO-7 AMB Questionnaire HERMELINDO-7 Date HERMELINDO - 7 assessed: 07/18/22 Source: Developed by Drs. Ovidio Stock, Francisca Pope, Cesar Zavala and colleagues, with an educational claire from [employer]. Review of Systems Const Denies chills and Denies fever(s) Eyes Denies blurry vision ENT Denies vertigo, Denies dizziness and Denies sore throat Card Denies chest pain at rest, Denies chest pain with activity, Denies diaphoresis, Denies dyspnea and Denies dyspnea on exertion Resp Denies cough, Denies dyspnea, Denies dyspnea on exertion and Denies wheezing GI Denies abdominal pain, Denies melena, Denies hematochezia, Denies constipation, Denies diarrhea and Denies loose stools Denies hematuria Musc Denies numbness and Denies tingling Skin/Breast Denies lesions Neuro Denies vertigo, Denies dizziness, Denies numbness and Denies tingling Psych Denies anxiety, Denies depression, Denies homicidal ideation, Denies suicidal ideation and Denies other (substance abuse) Aller/Immun Denies wheezing Physical exam (Primary Care) Vital Signs: Last Vital Signs Pulse 86 01/23/23 16:21 BP 122/80 01/23/23 16:21 Pulse Ox 96 01/23/23 16:21 Oxygen Delivery Method Room Air 01/23/23 16:21 BMI result Body Mass Index 36.5 Tobacco/Smoking Status: Tobacco use Status Tobacco use date assessed 01/23/23 01/23/23 16:28 Patient Tobacco Use Status Former Tobacco user 01/23/23 16:28 e-Cigarette/Vaping Use Never Used 01/23/23 16:28 Thrive Assessment: Date of Thrive Assessment Date Thrive assessed 07/18/22 01/23/23 16:28 Const General: cooperative Nutritional Appearance: well nourished Orientation/consciousness: patient oriented x3 HENMT Head: Yes normal to inspection, Yes normocephalic and Yes atraumatic Ears: TM's normal bilaterally Eyes General: appearance normal, both eyes and all related structures Alignment and Position: alignment normal and position normal Neck Neck: Yes normal visual inspection and Yes no lymphadenopathy Thyroid: Thyroid normal Resp Effort & Inspection: normal respiratory effort Auscultation: clear to auscultation bilaterally Cardio Rate: regular rate Rhythm: regular rhythm Heart sounds: S1 normal heart sound present, S2 normal heart sound present and no murmurs GI Other: small umbilical hernia noted Palpation (GI): Soft to palpation and nontender Auscultation: normal bowel sounds Other: GÓMEZ: prostate felt smooth, slightly enlarged, no nodules palpated Male General Exam: Yes normal external exam Penis: normal penis Scrotum: scrotum normal, testes descended bilaterally and no inguinal hernias Testes: no testicular mass Skin Rashes: no rashes Neuro General: patient oriented x3, moves all extremities, no focal motor deficits and deep tendon reflexes 2+ bilaterally Romberg Test: Negative Psych Appearance: grossly normal Mental Status: mental status grossly normal Speech and movement: Normal speech and movement present Affect: normal affect Attitude: cooperative Thought process: Normal thought process present Thought content: Normal thought content present Insight: Good insight present (Psych) Judgement: Good judgement present (Psych) Assessment and Plan Assessment & Plan (1) Physical exam: Code(s): Z00.00 - Encounter for general adult medical examination without abnormal fin dings (2) Screening PSA (prostate specific antigen): Code(s): Z12.5 - Encounter for screening for malignant neoplasm of prostate (3) Physical exam: Code(s): Z00.00 - Encounter for general adult medical examination without abnormal findings Orders: Orders Comprehensive Ora. Panel Fast Today Z00.00 - Encounter for general adult medical examination without abnormal findings UA CC w/rflx Micro + Cult Today Z00.00 - Encounter for general adult medical examination without abnormal findings Lipid Panel Today Z00.00 - Encounter for general adult medical examination without abnormal findings Prostate Specific Antigen Scr Today Z12.5 - Encounter for screening for malignant neoplasm of prostate AMB EKG-In Office Today Z00.00 - Encounter for general adult medical examination without abnormal findings Complete Blood Count Auto Diff Today Z00.00 - Encounter for general adult medical examination without abnormal findings TSH reflex Free T4 Today Z00.00 - Encounter for general adult medical examination without abnormal findings Coding Level of Care Code Est Pt Prev Care 40-64y(03687) Diagnoses Physical exam Z00. Screening PSA (prostate specific antigen) Z12.5
== END 2023-01-23 17:08 | disposition home or self-care (01) ==
PROVIDERS: Visit Provider Nurse Practitioner Family
DX: Z00.00 Encounter for general adult medical examination without abnormal findings (principal); Z12.5 Encounter for screening for malignant neoplasm of prostate
CPT/HCPCS: 99396

== ENCOUNTER 2023-02-17 07:59 | Outpatient (REF) | payer OTHER, SELFPAY ==
[2023-02-17 11:16] LABS: Appearance Urine Clear; Color Urine Yellow; Glucose Urine UA 100 mg/dL (Negative); Leukocyte Esterase Urine Negative (Negative); Nitrite Urine Negative (Negative); PH 6.5 (5.0-9.0); Specific Gravity - Urine 1.025 (1.005-1.025); Urine Blood Negative (Negative); Urine Ketones Negative (Negative); Urine Protein Negative (Neg-Trace)
[2023-02-17 11:19] LABS: MANUAL DIFF FLAG NO
[2023-02-17 11:23] LABS: Basophils Percent Auto 0.5 % (0-2); Eosinophils Absolute Auto 0.1 X10*3/uL (0.0-0.4); Eosinophils Percent Auto 1.8 % (0-4); Hematocrit 43.2 % (42.0-52.0); Hemoglobin 14.5 g/dl (14.0-18.0); Imm Gran Abs Auto 0.03 X10*3/uL (0.00-0.03); Imm Gran Pct Auto 0.5 % (0.0-0.4); Lymphocytes Absolute Auto 1.5 X10*3/uL (1.2-4.9); Lymphocytes Percent Auto 26.5 % (20-40); Mean Corpuscular HGB Conc 33.6 g/dl (31.0-36.0); Mean Corpuscular Hemoglobin 30.6 pg (27.0-33.0); Mean Corpuscular Volume 91.1 fL (80.0-98.0); Mean Platelet Volume 9.2 fL (9.4-12.4); Monocytes Absolute Auto 0.4 X10*3/uL (0.1-1.2); Monocytes Percent Auto 7.5 % (2-11); Neutrophils Absolute Auto 3.5 x10*3/uL (2.0-8.3); Neutrophils Percent Auto 63.2 % (45-73); Platelet Count 280 X10*3/uL (160-400); Red Blood Count 4.74 X10*6/uL (4.60-5.80); Red Cell Distribution Width 12.3 % (11.0-16.0); White Blood Count 5.5 X10*3/uL (4.8-10.8)
[2023-02-17 11:44] LABS: Alanine Aminotransferase 21 U/L (0-40); Albumin Level 4.1 g/dL (3.5-5.0); Alkaline Phosphatase 74 U/L (39-117); Anion Gap 14 (12-20); Aspartate Amino Transferase 17 U/L (5-37); Bilirubin Total 0.7 mg/dL (0.0-1.0); Blood Urea Nitrogen 17 mg/dL (9-16); Calcium 9.6 mg/dL (8.4-10.2); Carbon Dioxide 27 mmol/L (22-29); Chloride 104 mmol/L (96-108); Cholesterol 137 mg/dL (<200); Estimated Glomerular Filt Rate > 60; Glucose Fasting 100 mg/dL (60-99); HDL Cholesterol 44 mg/dL (>40); LDL Cholesterol Calculated 80 mg/dL (<100); Potassium 3.5 mmol/L (3.3-5.1); Sodium 141 mmol/L (135-145); Total Protein 7.1 g/dL (6.5-8.0); Triglycerides 67 mg/dL (<150)
[2023-02-17 12:03] LABS: TSH reflex Free T4 1.55 uIU/mL (0.32-4.0)
[2023-02-17 12:05] LABS: Prostate Specific Antigen Scr 0.91 ng/mL (<0.05-4.0)
== END 2023-02-17 08:00 | disposition home or self-care (01) ==
LOC: HO.HMGCLDS 07:59
PROVIDERS: PCP Nurse Practitioner Family; Visit Provider Nurse Practitioner Family
DX: Z00.00 Encounter for general adult medical examination without abnormal findings (principal); Z12.5 Encounter for screening for malignant neoplasm of prostate; E78.5 Hyperlipidemia, unspecified; I10 Essential (primary) hypertension; I26.99 Other pulmonary embolism without acute cor pulmonale
CPT/HCPCS: 36415; 80053; 80061; 81003; 84153; 84443; 85025

== ENCOUNTER 2024-04-16 15:48 | Outpatient (AMB) | payer OTHER, SELFPAY ==
[2024-04-16 15:52] VITALS: BP 122/80; PULSE 90; O2SAT 97; BMI 34.9
--- NOTE | 2024-04-16 15:52 | A.OFFPC_ITS ---
Vital Signs 04/16/24 15:52 Height 5 ft 10 in Weight 243 lb BMI 34.9 BP 122/80 Blood Pressure Location Rt brachial Position Sitting Pulse 90 Pulse Source Pulse Oximeter Pulse Oximetry (%) 97 Oxygen Delivery Method Room Air Intake Visit Reasons: PE Intake Note: pt is here for PE Allergies Iodinated Contrast Media [IV CONTRAST] Allergy (Unknown, Verified 04/16/24 15:52) HIVES Medication List - Last Reconciled 04/16/24 by MEERA GoodenP- amlodipine 5 mg PO DAILY atenolol 25 mg PO DAILY atorvastatin 20 mg PO BEDTIME 90 days hydrochlorothiazide 25 mg PO DAILY thiamine mononitrate (vit B1) 100 mg PO DAILY Tobacco use date assessed: 04/16/24 Dental Screening Dental Screen Date: 04/16/24 Did you have a dental visit in the last 12 months?: Yes Did you have a dental problem in the last 6 months where you did not have access to dental care?: No Was dental information given to patient?: Patient has dentist HPI PE HPI Details History of Present Illness The patient is a 58-year-old male presenting for a PE and follow-up. He reports increased nighttime urination, especially after consuming alcohol, but denies any problems with urination or associated symptoms such as chest pain, shortness of breath, fevers, or numbness. He has a history of hemorrhoids with occasional bleeding post-defecation, often exacerbated by prolonged physical activit, was seen by a specialist in the past for these. There is no recent intervention for his hemorrhoids, and previous advice was to manage them conservatively. The patient notes a family history of prostate cancer in his father, age of diagnosis unknown. Routine blood pressure management is ongoing, and he has no significant medication regimen. His colonoscopy is up-to-date, and there are no current specialists involved in his care. Health Maintenance - Colonoscopy up-to-date - Blood pressure monitored and noted as within normal ranges - Discussion regarding dietary intake pr ior to blood tests Social History - Denies alcohol consumption as a regula r habit - Engages in physical work, showing conc erns over physical activity on concrete and its impact on joint health - Mentions jumping incidents impacting s houlders, indicative of lifestyle with physical exertion Review of Systems - Genitourinary: Reports increased night time urination, denies other urinary issues. - Respiratory: Denies shortness of breat h. - Cardiovascular: Denies chest pain. - Neurological: Denies numbness or tingl ing. -denies any si or hi Physical Exam General: Cooperative, healthy appearing, comfortable, no acute distress and well developed Orientation: Patient oriented x3 Limitations: No limitations Head: Normal to inspection Ears: Hearing grossly normal bilaterally Nose: Normal external nose present Face and sinus: Normal facial exam Eyes: Appearance normal, both eyes and all related structures Neck: Normal visual inspection and Yes full ROM Respiratory: Normal respiratory effort and able to speak in complete sentences. Clear to auscultation bilaterally Cardiovascular: Regular rate and rhythm. Normal S1 and S2 GI: Normal to inspection. Soft to palpation and nontender. Noted small external hemorrhoids present Skin: No rashes or lesions noted gu: prostate was slightly enlarged, no nodules palpated Neuro: Patient oriented x3 Extremities: Normal to inspection Results Plan - noctuia: Monitor symptoms; advised to continue lifestyle adjustments including limiting alcohol intake as it exacerbates nighttime urination. PSA testing. - Hemorrhoids: Continue conservative man agement; patient advised to seek further intervention if symptoms worsen. - Family history of Prostate Cancer: Con tinue surveillance with routine PSA testing; no intervention needed until clinical symptoms manifest or PSA test indicates necessity. Patient was informed and verbally consented to the use of an ambient scribe for clinic note documentation during this visit. Discussion Notes I discussed with the patient the current status of his benign prostatic hyperplasia and the absence of worsening symptoms requiring immediate in tervention. I provided reassurance regarding his hemorrhoids and advised conservative management unless symptoms deteriorate. We acknowledged the family history of prostate cancer, stressing the importance of regular monitoring through PSA testing. No prostate exam was performed during this visit per patient's request. Patient Instructions - Schedule PSA test as recommended. - Limit alcohol intake to manage nightti me urination. - Continue conservative treatment for he morrhoids. - Monitor for any changes in symptoms an d report promptly if they worsen. [facility] Medical History BPH (benign prostatic hyperplasia) Tremor Cogwheel rigidity Anemia Cerebral aneurysm HTN (hypertension) CVA (cerebral vascular accident) Aortic root dilatation Surgical History History of brain surgery Family History Father Cancer of prostate Mother No problems noted. Daughter No problems noted. 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 1. Little interest or pleasure in doing things: not at all 2. Feeling down, depressed, or hopeless: not at all 3. Trouble falling or staying asleep, or sleeping too much: not at all 4. Feeling tired or having little energy: not at all 5. Poor appetite or overeating: not at all 6. Feeling bad about yourself - or that you are a failure or have let yourself or your family down: not at all 7. Trouble concentrating on things, such as reading the newspaper or watching television: not at all 8. Moving or speaking so slowly that other people could have noticed. Or the opposite - being so fidgety or restless that you have been moving around a lot more than usual: not at all 9. Thoughts that you would be better off or of hurting yourself in some way: not at all Total score: 0 Depression Screening Interpretation: Negative Depression Screening Done: Yes 13932 - PHQ-9 Billing: Yes Source: Developed by Drs. Ovidio Stock, Francisca Pope, Cesar Zavala and colleagues, with an educational claire from [employer]. Thrive Questionnaire Date Thrive assessed: 04/16/24 I am a: Patient What is your living situation today?: I have a steady place to live Within the past 12 months, did the food you bought not last and you didn't have the money to get more?: I choose not to answer this question Within the past 12 months, did you worry whether your food would run out before you got money to buy more?: I choose not to answer this question Do you have trouble paying for medicines?: I choose not to answer this question Do you have trouble getting transportation to medical appointments?: No Do you have trouble paying your heating and electricity bill?: I choose not to answer this question Do you have trouble taking care of your child, family member or friend?: No Do you have trouble with day-to-day activities such as bathing, preparing meals, shopping, managing finances, etc.?: No Are you currently unemployed and looking for a job?: No Are you interested in more education?: No Please select the resources that you would like help with: None Currently or been in a relationship where the following occur: No concerns reported THRIVE Score: 0 AUDIT C Alcohol Use Questionnaire (AUDIT-C) 1. How often do you have a drink containing alcohol?: 2-4 times a month 2. How many drinks containing alcohol do you have on a typical day when you are drinking?: 1 or 2 3. How often do you have six or more drinks on one occasion?: Never Total Score: 2 Score Reviewed/Action Taken: Yes HERMELINDO-7 AMB Questionnaire HERMELINDO-7 Date HERMELINDO - 7 assessed: 04/16/24 Feeling nervous, anxious, or on edge: 0 = Not at all Not being able to stop or control worryin = Not at all Worrying too much about different things: 0 = Not at all Trouble relaxin = Not at all Being so restless that it is hard to sit still: 0 = Not at all Becoming easily annoyed or irritable: 0 = Not at all Feeling afraid as if something awful might happen: 0 = Not at all Total HERMELINDO-7 score (0-4 normal; 5-9 mild; 10-14 moderate; 15-21 severe): 0 Source: Developed by Drs. Ovidio Stock, Francisca Pope, Cesar Zavala and colleagues, with an educational claire from [employer]. HERMELINDO-7 Assessment Billing HERMELINDO-7 Assessment Tool: HERMELINDO-7 Assessment 00968 Physical exam (Primary Care) Vital Signs: Last Vital Signs Pulse 90 04/16/24 15:52 BP 122/80 04/16/24 15:52 Pulse Ox 97 04/16/24 15:52 Oxygen Delivery Method Room Air 04/16/24 15:52 BMI result Body Mass Index 34.9 Tobacco/Smoking Status: Tobacco use Status Tobacco use date assessed 04/16/24 04/16/24 15:58 Patient Tobacco Use Status Former Tobacco user 04/16/24 15:58 e-Cigarette/Vaping Use Never Used 04/16/24 15:58 PHQ-9: PHQ-9 Score PHQ-9: Total score 0 04/16/24 15:58 Depression Screening Interpretation: Negative Thrive Assessment: Date of Thrive Assessment Date Thrive assessed 04/16/24 04/16/24 15:58 Currently or been in a relationship where the following occur: No concerns reported Coding Level of Care Code Est Pt Prev Care 40-64y(41349) Diagnoses Physical exam Z00. Screening PSA (prostate specific antigen) Z12.5 Additional Codes HERMELINDO-7 Assessment Billing - HERMELINDO-7 Assessment Tool: HERMELINDO-7 Assessment 12562 ([id number]) PHQ-9 - 08735 - PHQ-9 Billing: Yes ([id number]) Assessment & Plan Assessment & Plan (1) Physical exam: Code(s): Z00.00 - Encounter for general adult medical examination without abnormal findings Category: Medical (2) Screening PSA (prostate specific antigen): Code(s): Z12.5 - Encounter for screening for malignant neoplasm of prostate Category: Medical Plan . Orders: Orders Complete Blood Count Auto Diff Today Z00.00 - Encounter for general adult medical examination without abnormal findings TSH reflex Free T4 Today Z00.00 - Encounter for general adult medical examination without abnormal findings Lipid Panel Today Z00.00 - Encounter for general adult medical examination without abnormal findings Comprehensive [place]. Panel Fast Today Z00.00 - Encounter for general adult medical examination without abnormal findings UA CC w/rflx Micro + Cult Today Z00.00 - Encounter for general adult medical examination without abnormal findings Prostate Specific Antigen Scr Today Z12.5 - Encounter for screening for malignant neoplasm of prostate
== END 2024-04-16 17:00 | disposition home or self-care (01) ==
PROVIDERS: PCP Nurse Practitioner Family; Visit Provider Nurse Practitioner Family
DX: Z00.00 Encounter for general adult medical examination without abnormal findings (principal); Z12.5 Encounter for screening for malignant neoplasm of prostate

== ENCOUNTER → 2024-04-16 15:48 | Outpatient (BNVA) | payer OTHER, SELFPAY | PROVIDERS: PCP Nurse Practitioner Family; Visit Provider Nurse Practitioner Family | DX: Z00.00 Encounter for general adult medical examination without abnormal findings (principal); R35.1 Nocturia; K64.9 Unspecified hemorrhoids; Z80.42 Family history of malignant neoplasm of prostate | CPT/HCPCS: 96127 ==

== ENCOUNTER 2024-04-19 07:54 | Outpatient (REF) | payer OTHER, SELFPAY ==
[2024-04-19 11:12] LABS: MANUAL DIFF FLAG NO
[2024-04-19 11:14] LABS: Basophils Percent Auto 0.4 % (0-2); Eosinophils Absolute Auto 0.1 X10*3/uL (0.0-0.4); Eosinophils Percent Auto 1.2 % (0-4); Hematocrit 45.4 % (42.0-52.0); Hemoglobin 15.3 g/dl (14.0-18.0); Imm Gran Abs Auto 0.03 X10*3/uL (0.00-0.03); Imm Gran Pct Auto 0.4 % (0.0-0.4); Lymphocytes Absolute Auto 1.6 X10*3/uL (1.2-4.9); Lymphocytes Percent Auto 23.4 % (20-40); Mean Corpuscular HGB Conc 33.7 g/dl (31.0-36.0); Mean Corpuscular Hemoglobin 30.7 pg (27.0-33.0); Mean Corpuscular Volume 91.2 fL (80.0-98.0); Monocytes Absolute Auto 0.5 X10*3/uL (0.1-1.2); Monocytes Percent Auto 7.6 % (2-11); Neutrophils Absolute Auto 4.6 x10*3/uL (2.0-8.3); Platelet Count 290 X10*3/uL (160-400); Red Blood Count 4.98 X10*6/uL (4.60-5.80); Red Cell Distribution Width 12.7 % (11.0-16.0); White Blood Count 6.9 X10*3/uL (4.8-10.8)
[2024-04-19 11:57] LABS: Appearance Urine Clear; Color Urine Yellow; Glucose Urine UA Negative (Negative); Leukocyte Esterase Urine Negative (Negative); Nitrite Urine Negative (Negative); PH 5.5 (5.0-9.0); Specific Gravity - Urine 1.025 (1.005-1.025); Urine Blood Negative (Negative); Urine Ketones Negative (Negative); Urine Protein Negative (Neg-Trace)
[2024-04-19 12:08] LABS: Prostate Specific Antigen Scr 1.27 ng/mL (<0.05-4.0)
[2024-04-19 12:09] LABS: Alanine Aminotransferase 30 U/L (0-40); Albumin Level 4.3 g/dL (3.5-5.0); Alkaline Phosphatase 80 U/L (39-117); Anion Gap 12 (12-20); Aspartate Amino Transferase 26 U/L (5-37); Bilirubin Total 0.9 mg/dL (0.0-1.0); Blood Urea Nitrogen 24 mg/dL (9-16); Calcium 9.5 mg/dL (8.4-10.2); Carbon Dioxide 30 mmol/L (22-29); Chloride 102 mmol/L (96-108); Cholesterol 152 mg/dL (<200); Estimated Glomerular Filt Rate > 60; Glucose Fasting 102 mg/dL (60-99); HDL Cholesterol 40 mg/dL (>40); LDL Cholesterol Calculated 94 mg/dL (<100); Potassium 3.2 mmol/L (3.3-5.1); Sodium 141 mmol/L (135-145); TSH reflex Free T4 2.07 uIU/mL (0.32-4.0); Total Protein 7.5 g/dL (6.5-8.0); Triglycerides 93 mg/dL (<150)
== END 2024-04-19 07:55 | disposition home or self-care (01) ==
LOC: HO.HMGCLDS 07:54
PROVIDERS: PCP Nurse Practitioner Family; Visit Provider Nurse Practitioner Family
DX: Z00.00 Encounter for general adult medical examination without abnormal findings (principal); Z12.5 Encounter for screening for malignant neoplasm of prostate
CPT/HCPCS: 36415; 80053; 80061; 81003; 84153; 84443; 85025

== ENCOUNTER 2024-04-26 09:37 | Outpatient (REF) | payer OTHER, SELFPAY ==
[2024-04-26 11:28] LABS: Anion Gap 14 (12-20); Carbon Dioxide 28 mmol/L (22-29); Chloride 101 mmol/L (96-108); Potassium 4.1 mmol/L (3.3-5.1); Sodium 139 mmol/L (135-145)
== END 2024-04-26 09:38 | disposition home or self-care (01) ==
LOC: HO.HMGCLDS 09:37
PROVIDERS: PCP Nurse Practitioner Family; Visit Provider Nurse Practitioner Family
DX: E87.6 Hypokalemia (principal)
CPT/HCPCS: 36415; 80051

== ENCOUNTER 2025-05-05 13:09 | Outpatient (AMB) | payer OTHER, SELFPAY ==
--- NOTE | 2025-05-05 13:33 | MHC.PC.OV ---
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 Required: No Accompanied by: Self / Same As Patient Allergies Iodinated Contrast Media (IV CONTRAST) Allergy (Unknown, Verified 05/05/25 14:08) HIVES Medication List - Last Reconciled 05/05/25 by FRANCISCA Gooden- amlodipine 5 mg PO DAILY atenolol 25 mg PO DAILY atorvastatin 20 mg PO BEDTIME 90 days hydrochlorothiazide 25 mg PO DAILY thiamine mononitrate (vit B1) 100 mg PO DAILY Tobacco use date assessed: 05/05/25 Dental Screening Dental Screen Date: 05/05/25 Did you have a dental visit in the last 12 months?: Yes Did you have a dental problem in the last 6 months where you did not have access to dental care?: No Was dental information given to patient?: Patient has dentist HPI Physical HPI Details History of Present Illness The patient is a 59 year old male presenting for a physical exam. He has a history of a brain aneurysm that was repaired many years ago. The patient reports that he was cleared by neurosurgery and does not require any follow-up. He has a small umbilical hernia and a large skin tag on his right thigh, which has been present for several years. His colon screening is up to date. Health Maintenance - The patient's colon screening is up to date. - The patient declined any vaccinations today. - Lab orders were entered for future fasting blood work. Social History - The patient is going through a divorce. Review of Systems - Cardiovascular: Denies chest pain or shortness of breath. - Gastrointestinal: Denies abdominal pain, blood in stool, constipation, or diarrhea. - Neurological: Denies headaches. Physical Exam General: Cooperative, healthy appearing, comfortable, no acute distress and well developed Orientation: Patient oriented x3 Limitations: No limitations Head: Normal to inspection Ears: Hearing grossly normal bilaterally Nose: Normal external nose present Face and sinus: Normal facial exam Eyes: Appearance normal, both eyes and all related structures Neck: Normal visual inspection and Yes full ROM Respiratory: Normal respiratory effort and able to speak in complete sentences. Clear to auscultation bilaterally Cardiovascular: Regular rate and rhythm. Normal S1 and S2 GI: Normal to inspection. Soft to palpation and nontender : Testicles without masses/lesions and no hernias appreciated, except for a small umbilical hernia Skin: No rashes or lesions noted, except for a large skin tag on the medial aspect of the right thigh Neuro: Patient oriented x3 Extremities: Normal to inspection Results Plan 1. Encounter For General Adult Medical Examination The patient presents for a physical exam. He is up to date on his colon screening. He has declined vaccinations at this time. Fasting lab orders were provided. 2. Personal History Of Other Diseases Of The Nervous System And Sense Organs The patient has a history of a brain aneurysm that was surgically repaired many years ago. An attempt is being made to obtain his previous neurosurgery notes for record-keeping, though he reports he was cleared and requires no further follow-up. 3. Umbilical Hernia A small umbilical hernia was noted on examination. No intervention is planned at this time. 4. Skin Tag The patient has a large skin tag on the medial aspect of his right thigh, which has been present for several years. No intervention is planned at this time. Discussion Notes I discussed the patient's overall health during his physical examination. We reviewed his history of a repaired brain aneurysm, and I informed him that we are attempting to track down the notes from his last neurosurgery visit for his records. I confirmed his colon screening is up to date and noted his decision to decline vaccinations today. We acknowledged the presence of a small umbilical hernia and a large skin tag, which are long-standing and do not require intervention. I provided him with orders for fasting labs, which he knows to complete in the near future. Patient Instructions - Please get your fasting lab work done in the near future. - Your colon cancer screening is up to date. - You chose not to get any vaccines today. [facility] Medical History BPH (benign prostatic hyperplasia) Tremor Cogwheel rigidity Anemia Cerebral aneurysm HTN (hypertension) CVA (cerebral vascular accident) Aortic root dilatation Surgical History History of brain surgery Family History Father Cancer of prostate Mother No problems noted. Daughter No problems noted. Social History Household Members: Spouse and Children Housing: House Are you a primary director of medicare to a significant other at home: No Do you presently have visiting nurse or other home services: No Alcohol intake: current Alcohol intake frequency: does not drink Patient Tobacco Use Status: Former Tobacco user Years Smoked: quit 20 years ago e-Cigarette/Vaping Use: Never Used Second Hand Smoke Exposure: Yes service: No Current occupational status: employed Current occupation: [employer] Current occupational exposures/hazards: No Cognitive needs: No Hearing needs: No Vision needs: No Questionnaire Thrive Questionnaire Date Thrive assessed: 04/09/25 HERMELINDO-7 AMB Questionnaire HERMELINDO-7 Date HERMELINDO - 7 assessed: 04/16/24 Source: Developed by Drs. Ovidio Stock, Francisca Pope, Cesar Zavala and colleagues, with an educational claire from [employer]. Physical exam (Primary Care) Vital Signs: Last Vital Signs Pulse 85 05/05/25 13:34 Resp 16 05/05/25 13:34 BP 110/70 05/05/25 13:34 Pulse Ox 96 05/05/25 13:34 Oxygen Delivery Method Room Air 05/05/25 13:34 BMI result Body Mass Index 38.7 Tobacco/Smoking Status: Tobacco use Status Tobacco use date assessed 05/05/25 05/05/25 13:39 Patient Tobacco Use Status Former Tobacco user 05/05/25 13:39 e-Cigarette/Vaping Use Never Used 05/05/25 13:39 Thrive Assessment: Date of Thrive Assessment Date Thrive assessed 04/09/25 05/05/25 13:39 Coding Level of Care Code Est Pt Prev Care 40-64y(64510) Diagnoses Physical exam Z00.00 Screening PSA (prostate specific antigen) Z12.5 Assessment & Plan Assessment & Plan (1) Physical exam: Code(s): Z00.00 - Encounter for general adult medical examination without abnormal findings Category: Medical (2) Screening PSA (prostate specific antigen): Code(s): Z12.5 - Encounter for screening for malignant neoplasm of prostate Category: Medical Plan . Orders: Orders Complete Blood Count Auto Diff Today Z00.00 - Encounter for general adult medical examination without abnormal findings Lipid Panel Today Z00.00 - Encounter for general adult medical examination without abnormal findings Comprehensive [place]. Panel Fast Today Z00.00 - Encounter for general adult medical examination without abnormal findings TSH reflex Free T4 Today Z00.00 - Encounter for general adult medical examination without abnormal findings UA CC w/rflx Micro + Cult Today Z00.00 - Encounter for general adult medical examination without abnormal findings Prostate Specific Antigen Scr Today Z12.5 - Encounter for screening for malignant neoplasm of prostate AMB EKG-In Office Today Z00.00 - Encounter for general adult medical examination without abnormal findings
[2025-05-05 13:34] VITALS: BP 110/70; PULSE 85; RESP 16; O2SAT 96; BMI 38.7
--- OUTSIDE RECORDS SUMMARY | 2025-05-05 17:03 | XMS_ITS | Clinical Summary ---
Author Organization [address] Address [address] [place] [phone] Phone Care Team Providers Care Real Time Operator Name Role Phone Unavailable Primary Care Provider Unavailabl e Immunizations Immunization Administration Dates Next Due Influenza, injectable, quadrivalent, preservativ e free 02/07/2020 Social History Tobacco Use Types Packs/Day Years Used Date Smoking Tobacco: Never Assessed Sex and Gender Information Value Date Recorded Sex Assigned at Not on file Legal Sex Male 8:54 AM EDT Gender Identity Not on file Sexual Orientation Not on file Plan of Treatment Health Maintenance Due Date Last Done Comments HIV screening 1978 Hepatitis C screening 1983 Tetanus adult (Td q 10,TDAP once) 1985 Lipid disorder screening 2005 Colon cancer screening, Colonoscopy 2010 Diabetes screening 2010 Pneumococcal Vaccine (50+ ye ars) (1 of 1 - PCV) 2015 Shingles vaccine (Shingrix) (1 of 2 - Shingrix (RZV) 2 Dose Standard Series) 2015 Influenza vaccine 12/05/2024 02/07/2020 Covid-19 vaccine series ( - 2024- season) 2025 RSV Immunization (1 - 1-dose 75+ series) 2040 Meningococcal B Vaccine Aged Out No l onger eligible based on patient's age to complete this topic Meningococcal Vaccine Aged Out No tenisha raymon eligible based on patient's age to complete this topic
--- OUTSIDE RECORDS SUMMARY | 2025-05-05 17:03 | XMS_ITS | Encounter Summary ---
Author Organization [facility] and [facility] Address [address] [place] [address] Care Team Providers Care Plant Tech Name Role Phone Unavailable Primary Care Provider Unavailabl e Encounter Details Date Type Department Care Team (Late st Contact Info) Description 02/20/2020 Abstract [facility] [address] [address] Rahul Pollack MD [address] [place] [address] [phone] Social History Tobacco Use Types Packs/Day Years Used Date Smoking Tobacco: Never Assessed Sex and Gender Information Value Date Recorded Sex Assigned at Not on file Legal Sex Male 8:54 AM EDT Gender Identity Not on file Sexual Orientation Not on file documented as of this encounter Plan of Treatment Not on file documented as of this encounter Visit Diagnoses Not on filedocumented in this encounter
--- OUTSIDE RECORDS SUMMARY | 2025-05-05 17:03 | XMS_ITS | Encounter Summary ---
Author Organization [facility] Address [address] [place] [address] Care Team Providers Care Shirt Line Operator Name Role Phone Unavailable Primary Care Provider Unavailabl e Encounter Details Date Type Department Care Team (Late st Contact Info) Description 01/29/2020 Scanned Document [facility] [address] [place], [place] [address] Rahul Pollack MD [address] [place] [phone] Social History Tobacco Use Types Packs/Day Years [...]
--- OUTSIDE RECORDS SUMMARY | 2025-05-05 17:03 | XMS_ITS | Encounter Summary ---
Author Organization [facility] and [facility] Address [address] [place] [address] Care Team Providers Care Digital Media Specialist Name Role Phone Unavailable Primary Care Provider Unavailabl e Encounter Details Date Type Department Care Team (Late st Contact Info) Description 02/02/2020 Scanned Document [facility] [address] [place], [place] [address] Rahul Pollack MD [address] [place] [address] [phone] Social History Tobacco Use Types Packs/Day Years [...]
--- OUTSIDE RECORDS SUMMARY | 2025-05-05 17:03 | XMS_ITS | Encounter Summary ---
Author Organization [facility] and [facility] Address [address] [place] [address] Care Team Providers Care Fire Marshal Name Role Phone Unavailable Primary Care Provider Unavailabl e Encounter Details Date Type Department Care Team (Late st Contact Info) Description 01/29/2020 Scanned Document [facility] [address] [address] Rahul Pollack MD [address] [place] [phone] Social History Tobacco Use Types Packs/Day Years [...]
--- OUTSIDE RECORDS SUMMARY | 2025-05-05 17:03 | XMS_ITS | Encounter Summary ---
Author Organization [facility] and [facility] Address [address] [place] [phone] Care Team Providers Care Care Process Manager Name Role Phone Unavailable Primary Care Provider Unavailabl e Reason for Referral * Surgical (Routine) - Closed Specialty Diagnoses / Procedures Referred By Contac t Referred To Contact Neurological Surgery Diagnoses Cerebral aneurysm [facility] SCH[facility] [address] [place] [address] Phone: tel: Rahul Pollack MD [address] [place] [phone] Phone: tel: fax: Referral ID Status Reason Start Date Expiration Date V isits Requested Visits Authorized [id number] Closed Specialty Services Required 01/29/2020 01/28/2021 1 1 Encounter Details Date Type Department Care Team (Latest Contact Info) Description 01/29/2020 Transcribed Orders [facility] SCH[facility] [address] [place], [place] [id number] Referral, Self Cerebral aneurysm (Primary Dx) Social History Tobacco Use Types Packs/Day Years Used Date Smoking Tobacco: Never Assessed Sex and Gender Information Value Date Recorded Sex Assigned at Not on file Legal Sex Male 8:54 AM EDT Gender Identity Not on file Sexual Orientation Not on file documented as of this encounter Plan of Treatment Scheduled Referrals Name Type Priority Associated Diagnoses Order Schedule Ambulatory referral to Neurosurgery Outpatient Referral Routine Cerebral aneurysm Ordered: 01/29/2020 documented as of this encounter Visit Diagnoses Diagnosis Cerebral aneurysm- Primary Cerebral aneurysm, nonruptured documented in this encounter
--- OUTSIDE RECORDS SUMMARY | 2025-05-05 17:03 | XMS_ITS | Encounter Summary ---
Author Organization [facility] and [facility] Address [address] [place] [address] Care Team Providers Care Lieutenant Colonel Name Role Phone Unavailable Primary Care Provider Unavailabl e Encounter Details Date Type Department Care Team (Late st Contact Info) Description 02/10/2020 Scanned Document [facility] [address] [place], [place] [address] Rahul Pollack MD [address] [place] [phone] Social History Tobacco Use Types Packs/Day Years [...]
== END 2025-05-05 15:01 | disposition home or self-care (01) ==
LOC: HO.HMCC 13:09
PROVIDERS: PCP Nurse Practitioner Family; Visit Provider Nurse Practitioner Family
DX: Z00.00 Encounter for general adult medical examination without abnormal findings (principal); Z12.5 Encounter for screening for malignant neoplasm of prostate